=== PATIENT | female | born 1975 | race Caucasian/White ===

== ENCOUNTER → 2016-04-27 | Outpatient (CLI) | payer OTHER ==
[2015-12-10 16:50] VITALS: BP 126/72
[~2016-04-27] MED LIST: CITA20TA9 PO; HYDR12.58 PO; NAPR550T2 PO; OXYC-323 PO; PHEN15CA PO; PHEN37.568 PO
--- NOTE | 2016-04-27 14:49 | RAD ---
Bilateral hands, 6 views, 04/27/2016: History: Hand pain No fracture or destructive bony lesion is seen. There are minimal degenerative changes at scattered interphalangeal joints. There is a suggestion of small degenerative type cysts or bony erosions at the left fifth CMC joint level. The soft tissues are unremarkable. IMPRESSION: 1. Minimal arthritic change as described above. 2. No acute bony abnormality is detected.
== END | disposition home or self-care (01) ==
LOC: LAB 10:39
PROVIDERS: ATTEND Family Medicine
DX: M13.842 Other specified arthritis, left hand (principal); M24.842 Other specific joint derangements of left hand, not elsewhere classified
CPT/HCPCS: 36415; 73130; 84550; 86431

== ENCOUNTER 2016-05-25 10:31 | Emergency (ER) | payer OTHER ==
[~2016-05-25] VITALS: Ht 167.6 cm; Wt 80.7 kg
[2016-05-25 10:38] VITALS: BP 128/86
[2016-05-25] MEDS ORDERED: CLIN-44 PO (11:48)
--- NOTE | 2016-05-25 11:48 | PHYS DOC ---
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 She states that she does state that her feet quite a bit. She is complaining of a right ingrown toenail with a great toe. She states she has been soaking the toe in warm Epsom salt water without relief. The toe appears to be red and swollen and tender on the inner portion of the toenail. Patient denies any drainage or discharge coming from the site. Patient denies fever chills or nausea vomiting. Review of Systems Review of Systems Constitutional: Denies fever or chills [] Eyes: Denies change in visual acuity, redness, or eye pain [] HENT: Denies nasal congestion or sore throat [] Respiratory: Denies cough or shortness of breath [] Cardiovascular: No additional information not addressed in HPI [] GI: Denies abdominal pain, nausea, vomiting, bloody stools or diarrhea [] : Denies dysuria or hematuria [] Musculoskeletal: Denies back pain or joint pain [] Integument: Denies rash or skin lesions. C/o redness, tenderness and swelling to the right great toe Neurologic: Denies headache, focal weakness or sensory changes [] Allergies Allergies Allergies Coded Allergies Type Severity Reaction Last Updated Verified Cephalosporins Allergy Severe Anaphylaxis 12/09/15 Yes Sulfa (Sulfonamide Antibiotics) Allergy Severe Anaphylaxis 12/09/15 Yes Penicillins Allergy Intermediate Unknown 12/09/15 Yes amoxicillin Allergy Intermediate Rash 12/09/15 Yes bupropion Adverse Reaction Intermediate Anxiety 12/09/15 Yes Physical Exam Physical Exam Constitutional: Well developed, well nourished, no acute distress, non-toxic appearance. [] HENT: Normocephalic, atraumatic, bilateral external ears normal, oropharynx moist, no oral exudates, nose normal. [] Eyes: PERRLA, EOMI, conjunctiva normal, no discharge. [] Neck: Normal range of motion, no tenderness, supple, no stridor. [] Cardiovascular:Heart rate regular rhythm, no murmur [] Lungs & Thorax: Bilateral breath sounds clear to auscultation [] Skin: Warm, dry, no erythema, no rash. Right inner great toe with redness, warmth and tenderness, no drainage noted to the site. Back: No tenderness Extremities: No tenderness, no cyanosis, no clubbing, ROM intact, no edema. [] Neurologic: Alert and oriented X 3, normal motor function, normal sensory function, no focal deficits noted. [] Psychologic: Affect normal, judgement normal, mood normal. [] Current Patient Data Vital Signs Vital Signs Date Time Temp Pulse Resp B/P Pulse Ox O2 Delivery O2 Flow Rate FiO2 05/25/16 10:38 97.9 80 20 96 Room Air 97.9 EKG EKG [] Radiology/Procedures Radiology/Procedures [] Course & Med Decision Making Course & Med Decision Making Pertinent Labs and Imaging studies reviewed. (See chart for details) Activity as tolerated. Tylenol or ibuprofen for pain and discomfort. Patient will be placed on clindamycin due to allergy list. Patient will be instructed to follow-up with turkey egg gatherer. Also recommended patient to do warm salt salt soaks 3-4 times a day 20 minutes at a time. Patient was provided with signs and symptoms to return back to emergency department. Patient be discharged home in stable condition. Discharge instructions treatment regimens and follow-up recommendations. [] Dragon Disclaimer Dragon Disclaimer This electronic medical record was generated, in whole or in part, using a voice recognition dictation system. Departure Departure Impression: Primary Impression: Ingrowing nail with infection Disposition: 01 HOME, SELF-CARE Condition: STABLE Referrals: LILLIAN CAMERON MD (PCP) Patient Instructions: Ingrown Toenail, Paronychia, Adlb-fu-Hdtc Additional Instructions: Activity as tolerated. Tylenol or ibuprofen for pain and discomfort. Patient will be instructed to follow-up with turkey egg gatherer. Warm salt salt soaks 3-4 times a day 20 minutes at a time. Medication as prescribed Followup with turkey egg gatherer within the week Return to emergency department as needed for signs and symptoms that become worse. [] Scripts Clindamycin Hcl 150 Mg Capsule3 Cap PO TID 10 Days Prov:SHAY HERNADEZ NP 05/25/16 SHAY HERNADEZ NP May 25, 2016 11:48
== END 2016-05-25 12:08 | disposition home or self-care (01) ==
LOC: ER 10:31
DX: L60.0 Ingrowing nail (principal); I10 Essential (primary) hypertension; G43.909 Migraine, unspecified, not intractable, without status migrainosus; Z98.890 Other specified postprocedural states; Z88.8 Allergy status to other drugs, medicaments and biological substances; Z88.0 Allergy status to penicillin; Z88.1 Allergy status to other antibiotic agents; Z88.2 Allergy status to sulfonamides
CPT/HCPCS: 99283

== ENCOUNTER 2016-07-13 20:34 | Emergency (ER) | payer OTHER ==
[~2016-07-13] VITALS: Ht 167.6 cm; Wt 82.6 kg
[~2016-07-13 20:34] MED LIST changes: +CLIN-44 PO; -NAPR550T2 PO; +NAPR550T3 PO
[2016-07-13] MEDS ORDERED: PROCHLORPERAZINE 10 MG/2 ML VIAL. IV ONE (22:30)
[2016-07-13] MEDS ORDERED: KETOROLAC 15 MG/ML VIAL. IV ONE (22:30)
[2016-07-13] MEDS ORDERED: DIPHENHYDRAMINE 50 MG/ML VIAL. IVP ONE (22:30)
[2016-07-13] MEDS ORDERED: IV NORMAL SALINE 1000ML BAG 1,000 ML IV ONE (22:30)
--- NOTE | 2016-07-13 23:23 | ACF ---
Admission Forms Criteria HEADACHES Clinical Indications for Admission to Inpatient Care (Place 'X' for any and all applicable criteria): Admission is indicated for ANY ONE of the following(1)(2)(3)(4): [ ]I. Inpatient admission required rather than observational care (Also use Headaches: Observation Care as appropriate) because of ANY ONE of the following: [ ]a) Severe pain requiring acute inpatient management [ ]b) Altered mental status that is severe or persistent [ ]c) Vomiting or dehydration that is severe or persistent [ ]d) New-onset focal neurologic deficit that is severe or persistent [ ]e) Hypertension requiring inpatient treatment [ ]f) Severe (new) neurologic findings requiring inpatient care as indicated by ANY ONE of following(9)(10): [ ]1) Papilledema [ ]2) Cerebral edema [ ]3) Mass effect on CT scan [ ]4) Cerebral bleeding, ischemia, or vasospasm(16) [ ]5) Hydrocephalus(17) [ ]6) Uncontrolled seizures [ ]g) IV infusion of anticoagulation, platelet inhibitors vasoactive, or antiarrhythmic medication. [ ]h) Cerebral bleeding, hydrocephalus, or vasospasm monitoring (16) [ ]i) Increased intracranial pressure or cerebral edema monitoring (17) [ ]j) Other condition, treatment or monitoring requiring inpatient admission [ ]II. Unruptured but threatening aneurysm or vascular malformation [ ]III. Venous sinus thrombosis [ ]IV. Increased intracranial pressure [ ]V. Cerebral spinal fluid leak with decreased intracranial pressure [ ]. Medication-overuse headache that has failed all outpatient management options [ ]VII. Vasculitis (eg, giant cell (temporal) arteritis, central nervous system vasculitis) requiring IV corticosteroids, IV antithrombotic therapy, or inpatient monitoring (eg, visual symptoms or findings, other ischemic manifestations)[A](10)(11) Extended stay beyond goal length of stay may be needed for (27): [ ]a) Intractable migraine [ ]b) Subarachnoid or intracranial hemorrhage [ ]c) Malignant hypertension [ ]d) Detoxification from drug withdrawal in medication-overuse headache (29) The original [facility] RAZ Mobile content created by [facility] has been revised. The portions of the content which have been revised are identified through the use of italic text or in bold, and [employer] has neither reviewed nor approved the modified material.All other unmodified content is copyright [facility]. Please see references footnoted in the original [facility] edition 2016 VENTURA MILAN Jul 13, 2016 23:23
[2016-07-13 23:27] VITALS: BP 101/55
[2016-07-13] MEDS ORDERED: BUTA1CAP29 PO (23:32)
--- NOTE | 2016-07-13 23:32 | PHYS DOC ---
Past Medical History Past Medical History: Anxiety, Cancer, Hypertension, Migraines, Other Additional Past Medical Histor: EPIPLOIC APPENDAGITIS Past Surgical History: Hysterectomy, Tubal ligation, Other Additional Past Surgical Histo: RIGHT KNEE SX, SINUS SX, bilat mastectomy, port removal Alcohol Use: None Drug Use: None Adult General Chief Complaint Chief Complaint: HEADACHE HPI HPI Patient is a 40 year old female who presents with headache. Patient reports she arrived at work around 1830 tonight, and then started having throbbing pain in the left side of her head. This pain accompanied by nausea. She has tried Tylenol and ibuprofen with insufficient relief. Patient reports the same as prior migraines, which occur about once a month. She has never seen a neurologist for headaches. No other acute complaints. Review of Systems Review of Systems Constitutional: Denies fever or chills Eyes: Denies change in visual acuity or eye pain Respiratory: Denies cough or shortness of breath Cardiovascular: Denies chest pain GI: Nausea. Denies abdominal pain, vomiting, bloody stools or diarrhea : Denies dysuria or hematuria Musculoskeletal: Denies back pain or joint pain Neurologic: Migraine headache. Denies focal weakness or sensory changes Current Medications Current Medications Current Medications Medications (Trade) Dose Ordered Sig/Christofer Start Time Stop Time Status Last Admin Dose Admin Diphenhydramine HCl (Benadryl) 25 mg 1X ONCE 07/13/16 22:30 07/13/16 22:31 DC 07/13/16 22:28 25 MG Ketorolac Tromethamine (Toradol) 15 mg 1X ONCE 07/13/16 22:30 07/13/16 22:31 DC 07/13/16 22:28 15 MG Prochlorperazine Edisylate (Compazine) 10 mg 1X ONCE 07/13/16 22:30 07/13/16 22:31 DC 07/13/16 22:28 10 MG Sodium Chloride (Iv Sodium Chloride 0.9% 1000ml Bag) 1,000 ml @ 1,000 mls/hr 1X ONCE 07/13/16 22:30 07/13/16 23:29 DC 07/13/16 22:29 1,000 MLS/HR Allergies Allergies Allergies Coded Allergies Type Severity Reaction Last Updated Verified Cephalosporins Allergy Severe Anaphylaxis 12/09/15 Yes Sulfa (Sulfonamide Antibiotics) Allergy Severe Anaphylaxis 12/09/15 Yes Penicillins Allergy Intermediate PSYCHOTIC EPISODE 07/13/16 Yes amoxicillin Allergy Intermediate Rash 12/09/15 Yes sumatriptan Adverse Reaction Severe CHEST PAIN 07/13/16 Yes bupropion Adverse Reaction Intermediate Anxiety 12/09/15 Yes Physical Exam Physical Exam Constitutional: Well developed, well nourished, non-toxic appearance HENT: Normocephalic, atraumatic, bilateral external ears normal Eyes: PERRL, EOMI, conjunctiva normal, no discharge Neck: Normal range of motion, no stridor Cardiovascular: Heart rate normal, regular rhythm, no murmur Lungs & Thorax: Bilateral breath sounds clear to auscultation Abdomen: Bowel sounds normal, soft, non-distended, no TTP Skin: Warm, dry, no erythema, no rash Extremities: No obvious deformity, no edema Neurologic: Alert and oriented X 3, GCS 15, CN II-XII grossly intact, strength intact and symmetrical throughout, sensation to light touch intact throughout, no dystaxia noted Psychologic: Affect normal, judgement normal, mood normal Current Patient Data Vital Signs Vital Signs Date Time Temp Pulse Resp B/P Pulse Ox O2 Delivery O2 Flow Rate FiO2 07/13/16 23:27 57 101/55 95 Room Air 07/13/16 20:51 98.1 20 98.1 EKG EKG [] Radiology/Procedures Radiology/Procedures [] Course & Med Decision Making Course & Med Decision Making Pertinent Labs and Imaging studies reviewed. (See chart for details) Patient is 40-year-old female who presents with migraine headache. Long history of same. Will give migraine cocktail. Patient reexamined after meds. She reports near complete resolution of headache. Discharged home with prescription for Fioricet, instructions for follow-up with neurology, return precautions. Dragon Disclaimer Dragon Disclaimer This electronic medical record was generated, in whole or in part, using a voice recognition dictation system. Departure Departure Impression: Primary Impression: Migraine Disposition: 01 HOME, SELF-CARE Condition: IMPROVED Referrals: LILLIAN CAMERON MD (PCP) ECTOR MICHELLE MD Patient Instructions: Migraine Headache Additional Instructions: Thank you for allowing us to provide care today in the Emergency Department. Take the provided medication as directed. Use caution when taking this medication as it can make you drowsy. Schedule a follow up appointment with your primary care doctor and with a neurologist using the provided contact information. Return promptly to the Emergency Department if you develop any new or concerning symptoms. Scripts Butalb/Acetaminophen/Caffeine (Fioricet 50-300-40 Mg Capsule)1 Each Capsule1 Each PO PRN Q4HRS PRN HEADACHE #15 CAP Prov:ALIZA ORANTES MD 07/13/16 ALIZA ORANTES MD Jul 13, 2016 23:32
== END 2016-07-13 23:48 | disposition home or self-care (01) ==
LOC: ER 20:34
DX: G43.909 Migraine, unspecified, not intractable, without status migrainosus (principal); F41.9 Anxiety disorder, unspecified; I10 Essential (primary) hypertension; Z88.0 Allergy status to penicillin; Z88.1 Allergy status to other antibiotic agents; Z88.2 Allergy status to sulfonamides; Z88.8 Allergy status to other drugs, medicaments and biological substances
CPT/HCPCS: 96361; 96374; 96375; 99284; J0780; J1200; J1885; J7030

== ENCOUNTER → 2016-08-04 | Outpatient (CLI) | payer OTHER ==
[2016-07-13 23:27] VITALS: BP 101/55
[~2016-08-04] MED LIST changes: +BUTA1CAP29 PO
[2016-08-04 10:18] LABS: ALBUMIN 3.7 g/dL (3.4-5.0); ALBUMIN/GLOBULIN RATIO 1.1 (1.0-1.7); CALCIUM 9.3 mg/dL (8.5-10.1); CREATININE 0.7 mg/dL (0.6-1.0); GFR 93.6; POTASSIUM 4.5 mmol/L (3.5-5.1); TOTAL BILIRUBIN 0.4 mg/dL (0.2-1.0); TOTAL PROTEIN 7.2 g/dL (6.4-8.2)
== END | disposition home or self-care (01) ==
LOC: LAB 09:34
PROVIDERS: ATTEND Family Medicine
DX: E11.9 Type 2 diabetes mellitus without complications (principal); I11.0 Hypertensive heart disease with heart failure
CPT/HCPCS: 36415; 80053; 82043; 83036

== ENCOUNTER → 2016-08-10 | Outpatient (CLI) | payer OTHER ==
[2016-07-13 23:27] VITALS: BP 101/55
[2016-08-10 12:59] LABS: BASO % 0 % (0-3); EOS % 3 % (0-3); HEMATOCRIT 39.3 % (36.0-47.0); HEMOGLOBIN 13.5 g/dL (12.0-15.5); LYMPH # 2.7 x10^3/uL (1.0-4.8); LYMPH % 30 % (24-48); MEAN CORPUSCULAR HEMOGLOBIN 31 pg (25-35); MEAN CORPUSCULAR HGB CONC 34 g/dL (31-37); MEAN CORPUSCULAR VOLUME 91 fL (79-100); MONO % 7 % (0-9); NEUT % 60 % (31-73); PLATELET COUNT 335 x10^3/uL (140-400); RED BLOOD COUNT 4.31 x10^6/uL (3.50-5.40); RED CELL DISTRIBUTION WIDTH 13.4 % (11.5-14.5)
[2016-08-10 13:23] LABS: ALBUMIN 3.5 g/dL (3.4-5.0); CREATININE 0.6 mg/dL (0.6-1.0); GFR 111.3; POTASSIUM 4.1 mmol/L (3.5-5.1); TOTAL BILIRUBIN 0.3 mg/dL (0.2-1.0); TOTAL PROTEIN 6.9 g/dL (6.4-8.2)
== END | disposition home or self-care (01) ==
LOC: LAB 12:20
PROVIDERS: ATTEND Psychiatry & Neurology Neurology
DX: G43.009 Migraine without aura, not intractable, without status migrainosus (principal)
CPT/HCPCS: 36415; 80053; 85027; 85651

== ENCOUNTER → 2017-02-03 | Outpatient (CLI) | payer OTHER ==
[~2017-02-03] MED LIST changes: -CLIN-44 PO; +CLIN150C14 PO; +NAPR-677 PO; -NAPR550T3 PO; -PHEN15CA PO; +PHEN15CA2 PO; -PHEN37.568 PO; +PHEN37.598 PO
[2017-02-03 13:01] LABS: ALBUMIN 3.8 g/dL (3.4-5.0); CALCIUM 9.5 mg/dL (8.5-10.1); CREATININE 0.7 mg/dL (0.6-1.0); GFR 93.2; POTASSIUM 3.9 mmol/L (3.5-5.1); TOTAL BILIRUBIN 0.3 mg/dL (0.2-1.0); TOTAL PROTEIN 7.5 g/dL (6.4-8.2)
[2017-02-03 13:04] LABS: BASO # 0.1 x10^3/uL (0.0-0.2); BASO % 1 % (0-3); EOS % 1 % (0-3); HEMATOCRIT 41.5 % (36.0-47.0); HEMOGLOBIN 13.9 g/dL (12.0-15.5); LYMPH # 2.5 x10^3/uL (1.0-4.8); LYMPH % 22 % (24-48); MEAN CORPUSCULAR HEMOGLOBIN 31 pg (25-35); MEAN CORPUSCULAR HGB CONC 33 g/dL (31-37); MEAN CORPUSCULAR VOLUME 92 fL (79-100); MONO % 7 % (0-9); NEUT % 70 % (31-73); PLATELET COUNT 378 x10^3/uL (140-400); RED BLOOD COUNT 4.53 x10^6/uL (3.50-5.40); RED CELL DISTRIBUTION WIDTH 13.4 % (11.5-14.5); WHITE BLOOD COUNT 11.2 x10^3/uL (4.0-11.0)
== END | disposition home or self-care (01) ==
LOC: LAB 12:16
PROVIDERS: ATTEND Family Medicine
DX: R10.11 Right upper quadrant pain (principal)
CPT/HCPCS: 36415; 80053; 83690; 85025

== ENCOUNTER → 2017-02-16 | Outpatient (CLI) | payer OTHER ==
[~2017-02-16] MED LIST changes: +SINCALIDE 1.68 MCG in IV NORMAL SALINE 50ML 30 ML IV ONE
--- NOTE | 2017-02-16 12:58 | RAD ---
EXAM: Nuclear hepatobiliary scan with ejection fraction. HISTORY: Abdominal pain/nausea. TECHNIQUE: Serial static images are obtained of the liver and biliary system in a frontal projection following IV administration of 5.5 mCi of technetium-99m Choletec. After filling of the gallbladder, 1.68 mcg of sincalide were infused over 30 minutes and dynamic imaging continued over this period. The gallbladder ejection fraction was calculated. FINDINGS: There is prompt hepatic clearance of tracer from the blood pool. There is homogeneous distribution throughout the liver. There is normal filling of the gallbladder and normal emptying into the biliary system and small bowel. The gallbladder ejection fraction is 63.6% (normal >35%). IMPRESSION: 1. Normal gallbladder ejection fraction.
== END | disposition home or self-care (01) ==
LOC: NM 10:18
PROVIDERS: ATTEND Family Medicine
DX: R11.0 Nausea (principal); R93.8 Abnormal findings on diagnostic imaging of other specified body structures
CPT/HCPCS: 78226; 96374; 96375; A9537; J2805

== ENCOUNTER 2017-02-22 01:28 | Emergency (ER) | payer OTHER ==
[~2017-02-22] VITALS: Ht 167.6 cm; Wt 83.9 kg
[~2017-02-22 01:28] MED LIST changes: -SINCALIDE 1.68 MCG in IV NORMAL SALINE 50ML 30 ML IV ONE
[2017-02-22 01:55] VITALS: BP 142/78
[2017-02-22 02:08] LABS: BILIRUBIN,URINE NEGATIVE (NEG); GLUCOSE,URINE NEGATIVE (NEG); NITRITE,URINE NEGATIVE (NEG); PH,URINE 6.5; PROTEIN,URINE NEGATIVE (NEG-TRACE); UROBILINOGEN,URINE 0.2 mg/dL (0.2 mg/dL)
[2017-02-22 02:12] LABS: BACTERIA,URINE 0 /HPF (0-FEW); SQUAMOUS EPITHELIAL CELL,UR FEW /LPF
[2017-02-22 02:40] LABS: BASO # 0.1 x10^3/uL (0.0-0.2); BASO % 1 % (0-3); EOS % 2 % (0-3); HEMATOCRIT 39.7 % (36.0-47.0); HEMOGLOBIN 13.4 g/dL (12.0-15.5); LYMPH # 4.1 x10^3/uL (1.0-4.8); LYMPH % 38 % (24-48); MEAN CORPUSCULAR HEMOGLOBIN 31 pg (25-35); MEAN CORPUSCULAR HGB CONC 34 g/dL (31-37); MEAN CORPUSCULAR VOLUME 90 fL (79-100); MONO % 6 % (0-9); NEUT % 54 % (31-73); PLATELET COUNT 340 x10^3/uL (140-400); RED BLOOD COUNT 4.39 x10^6/uL (3.50-5.40); RED CELL DISTRIBUTION WIDTH 13.2 % (11.5-14.5); WHITE BLOOD COUNT 10.9 x10^3/uL (4.0-11.0)
[2017-02-22 02:55] LABS: CALCIUM 9.3 mg/dL (8.5-10.1); CREATININE 0.7 mg/dL (0.6-1.0); GFR 93.2; POTASSIUM 3.4 mmol/L (3.5-5.1)
[2017-02-22 02:59] LABS: ALBUMIN 4.1 g/dL (3.4-5.0); ALBUMIN/GLOBULIN RATIO 1.3 (1.0-1.7); TOTAL BILIRUBIN 0.3 mg/dL (0.2-1.0); TOTAL PROTEIN 7.3 g/dL (6.4-8.2)
[2017-02-22] MEDS ORDERED: HYDROmorphone 2 MG/ML VIAL IV/SQ PRN (03:00)
[2017-02-22] MEDS ORDERED: ONDANSETRON PF 4 MG/2 ML VIAL. IV ONE (03:30)
[2017-02-22] MEDS ORDERED: IV NORMAL SALINE 1000ML BAG 1,000 ML IV SCH (03:30)
--- NOTE | 2017-02-22 03:36 | PHYS DOC ---
Past Medical History Past Medical History: Anxiety, Cancer, Hypertension, Migraines, Other Additional Past Medical Histor: EPIPLOIC APPENDAGITIS, BREAST CANCER W CHEMO Past Surgical History: Hysterectomy, Tubal ligation, Other Additional Past Surgical Histo: RIGHT KNEE SX, SINUS SX, bilat mastectomy, port removal Alcohol Use: None Drug Use: None Adult General Chief Complaint Chief Complaint: ABDOMINAL PAIN HPI HPI 41 yo F with a hx of chronic epigastric/ruq abd pain for more than a month. She has had an US, CT and Hida scan which were reportedly nl. her pain is sharp, nonradiating without alleviating factors. 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 ROS neg for f/c/n/v. neg for cp/soa. all other ros is neg. ed course: 41 yo F presenting with chronic RUQ abd pain associated with lightheadedness. vital unremarkable. labs unremarkable. abd exam and repeat abd exam reassuring. In the emergency department patient appears stable. IV fluids administered which improved her symptoms. Abdomen soft nontender without rebound tenderness or guarding. Pt d/chris with f/u with Pcp. return precautions given. pt comfortable with plan. Review of Systems Review of Systems see above Current Medications Current Medications Current Medications Medications (Trade) Dose Ordered Sig/Christofer Start Time Stop Time Status Last Admin Dose Admin Hydromorphone HCl (Dilaudid) 0.5 mg PRN Q15MIN PRN 02/22/17 03:00 02/22/17 04:55 DC Ondansetron HCl (Zofran) 4 mg 1X ONCE 02/22/17 03:30 02/22/17 03:31 DC 02/22/17 04:14 4 MG Sodium Chloride 1,000 ml @ 1,000 mls/hr Q1H 02/22/17 03:30 02/22/17 04:29 DC 02/22/17 04:14 1,000 MLS/HR Allergies Allergies Allergies Coded Allergies Type Severity Reaction Last Updated Verified Cephalosporins Allergy Severe Anaphylaxis 12/09/15 Yes Sulfa (Sulfonamide Antibiotics) Allergy Severe Anaphylaxis 12/09/15 Yes Penicillins Allergy Intermediate PSYCHOTIC EPISODE 07/13/16 Yes amoxicillin Allergy Intermediate Rash 12/09/15 Yes sumatriptan Adverse Reaction Severe CHEST PAIN 07/13/16 Yes bupropion Adverse Reaction Intermediate Anxiety 12/09/15 Yes Physical Exam Physical Exam Constitutional: Well developed, well nourished, no acute distress, non-toxic appearance. [] HENT: Normocephalic, atraumatic, bilateral external ears normal, oropharynx moist, no oral exudates, nose normal. [] Eyes: PERRLA, EOMI, conjunctiva normal, no discharge. [] Neck: Normal range of motion, no tenderness, supple, no stridor. [] Cardiovascular:Heart rate regular rhythm, no murmur [] Lungs & Thorax: Bilateral breath sounds clear to auscultation [] Abdomen: Bowel sounds normal, soft, no tenderness, no masses, no pulsatile masses. [] Skin: Warm, dry, no erythema, no rash. [] Back: No tenderness, no CVA tenderness. [] Extremities: No tenderness, no cyanosis, no clubbing, ROM intact, no edema. [] Neurologic: Alert and oriented X 3, normal motor function, normal sensory function, no focal deficits noted. [] Psychologic: Affect normal, judgement normal, mood normal. [] Current Patient Data Vital Signs Vital Signs Date Time Temp Pulse Resp B/P (MAP) Pulse Ox O2 Delivery O2 Flow Rate FiO2 02/22/17 01:55 98.3 76 20 142/78 (99) 98 Room Air 98.3 Lab Values Laboratory Tests Test 02/22/17 01:50 02/22/17 02:35 Urine Collection Type Unknown Urine Color Yellow Urine Clarity Clear Urine pH 6.5 Urine Specific [place] 1.015 Urine Protein Negative mg/dL (NEG-TRACE) Urine Glucose (UA) Negative mg/dL (NEG) Urine Ketones (Stick) Negative mg/dL (NEG) Urine Blood Small (NEG) Urine Nitrite Negative (NEG) Urine Bilirubin Negative (NEG) Urine Urobilinogen Dipstick 0.2 mg/dL (0.2 mg/dL) Urine Leukocyte Esterase Negative (NEG) Urine RBC 6-10 /HPF (0-2) Urine WBC 1-4 /HPF (0-4) Urine Squamous Epithelial Cells Few /LPF Urine Bacteria 0 /HPF (0-FEW) Urine Mucus Mod /LPF White Blood Count 10.9 x10^3/uL (4.0-11.0) Red Blood Count 4.39 x10^6/uL (3.50-5.40) Hemoglobin 13.4 g/dL (12.0-15.5) Hematocrit 39.7 % (36.0-47.0) Mean Corpuscular Volume 90 fL (79-100) Mean Corpuscular Hemoglobin 31 pg (25-35) Mean Corpuscular Hemoglobin Concent 34 g/dL (31-37) Red Cell Distribution Width 13.2 % (11.5-14.5) Platelet Count 340 x10^3/uL (140-400) Neutrophils (%) (Auto) 54 % (31-73) Lymphocytes (%) (Auto) 38 % (24-48) Monocytes (%) (Auto) 6 % (0-9) Eosinophils (%) (Auto) 2 % (0-3) Basophils (%) (Auto) 1 % (0-3) Neutrophils # (Auto) 5.9 x10^3uL (1.8-7.7) Lymphocytes # (Auto) 4.1 x10^3/uL (1.0-4.8) Monocytes # (Auto) 0.7 x10^3/uL (0.0-1.1) Eosinophils # (Auto) 0.2 x10^3/uL (0.0-0.7) Basophils # (Auto) 0.1 x10^3/uL (0.0-0.2) Sodium Level 139 mmol/L (136-145) Potassium Level 3.4 mmol/L (3.5-5.1) L Chloride Level 103 mmol/L (98-107) Carbon Dioxide Level 27 mmol/L (21-32) Anion Gap 9 (6-14) Blood Urea Nitrogen 11 mg/dL (7-20) Creatinine 0.7 mg/dL (0.6-1.0) Estimated GFR (Cockcroft-Gault) 93.2 BUN/Creatinine Ratio 16 (6-20) Glucose Level 114 mg/dL (70-99) H Calcium Level 9.3 mg/dL (8.5-10.1) Total Bilirubin 0.3 mg/dL (0.2-1.0) Aspartate Amino Transferase (AST) 28 U/L (15-37) Alanine Aminotransferase (ALT) 44 U/L (14-59) Alkaline Phosphatase 149 U/L (46-116) H Total Protein 7.3 g/dL (6.4-8.2) Albumin 4.1 g/dL (3.4-5.0) Albumin/Globulin Ratio 1.3 (1.0-1.7) Lipase 139 U/L (73-393) Laboratory Tests 02/22/17 02:35 Laboratory Tests 02/22/17 02:35 EKG EKG [] Radiology/Procedures Radiology/Procedures [] Course & Med Decision Making Course & Med Decision Making Pertinent Labs and Imaging studies reviewed. (See chart for details) [] Dragon Disclaimer Dragon Disclaimer This electronic medical record was generated, in whole or in part, using a voice recognition dictation system. Departure Departure Impression: Primary Impression: Epigastric abdominal pain Additional Impression: Lightheaded Disposition: HOME, SELF-CARE Condition: STABLE Referrals: LILLIAN CAMERON MD (PCP) Patient Instructions: Abdominal Pain (Nonspecific) Additional Instructions: Thank you for allowing us to participate in your care today. Followup with your primary care physician in 3 days if your symptoms do not improve. Call your Primary Doctor tomorrow and inform them of your visit today. If you do not have a primary care provider you can ask for a list of our primary care providers. Return to the emergency department you have any new or concerning findings. This should be evaluated by the primary care physician and any necessary consulting services for continued management within a few days after discharge. Return to emergency room if you have any new or concerning symptoms including but not limited to fever, chills, nausea, vomiting, intractable pain, any new rashes, chest pain, shortness of air, uncontrolled bleeding, difficulty breathing, and/or vision loss. Problem Qualifiers PATRICK NEUMANN MD Feb 22, 2017 03:36
--- NOTE | 2017-02-22 06:48 | EKG ---
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
== END 2017-02-22 04:55 | disposition home or self-care (01) ==
LOC: ER 01:28
DX: G89.29 Other chronic pain (principal); R10.13 Epigastric pain; R10.11 Right upper quadrant pain; R42 Dizziness and giddiness; I10 Essential (primary) hypertension; F41.9 Anxiety disorder, unspecified; G43.909 Migraine, unspecified, not intractable, without status migrainosus; Z88.2 Allergy status to sulfonamides; Z88.1 Allergy status to other antibiotic agents; Z88.0 Allergy status to penicillin; Z88.8 Allergy status to other drugs, medicaments and biological substances
CPT/HCPCS: 36415; 80053; 81001; 83690; 85025; 93005; 96361; 96374; 99285; J2405; J7030

== ENCOUNTER 2017-03-07 06:25 | Observation (INO) | payer OTHER ==
[~2017-03-07] VITALS: Ht 165.1 cm; Wt 84.4 kg
[2017-03-07] VITALS (11 sets, daily range): BP systolic 92–132; BP diastolic 52–73
[~2017-03-07 06:25] MED LIST changes: +ACET500T33 PO; +ANAS1TAB3 PO
[2017-03-07] MEDS ORDERED: ONDANSETRON PF 4 MG/2 ML VIAL. IV PRN ×2 (07:00→12:15)
[2017-03-07] MEDS ORDERED: PROCHLORPERAZINE 10 MG/2 ML VIAL. IV PRN (07:00)
[2017-03-07] MEDS ORDERED: LIDOCAINE 1% PF 2 ML VIAL. ID PRN (07:00)
[2017-03-07] MEDS ORDERED: IV RINGERS,LACTATED 1000ML 1,000 ML IV SCH (07:00)
[2017-03-07] MEDS ORDERED: fentaNYL PF VIAL 100 MCG/2 ML VIAL IV PRN (07:00)
[2017-03-07] MEDS ORDERED: HYDROmorphone 2 MG/ML VIAL IV PRN (07:00)
[2017-03-07] MEDS ORDERED: IOHEXOL 300 MG/ML 50 ML VIAL. ONE (07:33)
[2017-03-07] MEDS ORDERED: SURGICEL HEMOSTAT 4X8 EACH. ONE (07:33)
[2017-03-07] MEDS ORDERED: BUPIVAC MPF-EPI 0.5%-1:200000 30 ML VIAL. ONE (07:33)
[2017-03-07] MEDS ORDERED: SEVOFLURANE 61 TO 120 MINUTES. IH ONE (08:09)
[2017-03-07] MEDS ORDERED: ROCURONIUM 50 MG/5 ML VIAL. ONE (08:09)
[2017-03-07] MEDS ORDERED: fentaNYL PF VIAL 100 MCG/2 ML VIAL ONE ×3 (08:09→10:36)
[2017-03-07] MEDS ORDERED: MIDAZOLAM HCL/PF 2 MG/2 ML VIAL. ONE (08:09)
[2017-03-07] MEDS ORDERED: PROPOFOL 20 ML IV ONE (08:10)
[2017-03-07] MEDS ORDERED: ONDANSETRON PF 4 MG/2 ML VIAL. ONE (08:10)
[2017-03-07] MEDS ORDERED: LIDOCAINE 2% PF Vial for OR 5 ML VIAL. ONE (08:10)
[2017-03-07] MEDS ORDERED: DEXAMETHASONE SOD PHOS 20 MG/5 ML VIAL. ONE ×2 (08:10)
[2017-03-07] MEDS ORDERED: diphenhydrAMINE 50 MG/ML VIAL ONE (08:32)
[2017-03-07] MEDS ORDERED: FAMOTIDINE 20 MG/2 ML VIAL ONE (08:32)
[2017-03-07] MEDS ORDERED: GLYCOPYRROLATE 1 MG/5 ML VIAL. ONE (09:01)
[2017-03-07] MEDS ORDERED: NEOSTIGMINE 10 MG/10 ML VIAL. ONE (09:01)
[2017-03-07] MEDS ORDERED: KETOROLAC 30 MG/ML INJ FOR OR. INJ ONE (09:02)
--- NOTE | 2017-03-07 09:16 | RAD ---
Intraoperative cholangiogram, 03/07/2017: History: Cholecystectomy 2 spot films from surgery are presented for review. Contrast has been injected into the cystic duct remnant. 10 seconds of fluoroscopy time was utilized. There is good flow of contrast into the duodenum at the ampulla. The common duct is of normal caliber. No filling defect is seen in the common duct to suggest a retained calculus. The visualized intrahepatic ducts are unremarkable. No contrast extravasation is seen. IMPRESSION: No significant abnormality is detected.
--- NOTE | 2017-03-07 09:23 | PDOC4 ---
Operative Note Operative Note Operative Note: Preoperative Diagnosis: Biliary dyskinesia Postoperative Diagnosis: Same Procedure: Laparoscopic cholecystectomy with intraoperative cholangiogram Surgeons: Alexander Anesthesia: Gen. Estimated Blood Loss: 10 mL Specimen: Gallbladder to pathology Drains: None Complications: None Indications: The patient is a 41 year old female who is been experiencing recurrent upper abdominal pain consistent with biliary colic. She underwent a PIPIDA scan which showed a normal ejection fraction but severe and prominent reproduction of symptoms with injection of Kinevac consistent with biliary dyskinesia. Surgical treatment was offered by means of a laparoscopic cholecystectomy. The risks of surgery were discussed which include bleeding, infection, bile duct injury, bile leak, pain, the potential for additional surgeries or procedures. The patient understands and would like to proceed. Description: The patient was taken to the operating room and laid supine on the operating table. General anesthesia was performed. The abdomen was prepped with ChloraPrep and draped in a standard surgical fashion. A small infraumbilical incision was made with a scalpel. The Veress needle was then inserted and a pneumoperitoneum was then created. A 5 mm trocar was then inserted and the laparoscope was introduced. In the upper midabdomen a 5 mm trocar was inserted and in the right upper quadrant two 2.3 mm mini lap graspers were inserted. The gallbladder was retracted cephalad. The cystic duct was dissected free from surrounding tissues. One clip was placed on the duct near the gallbladder junction. An opening was made in the duct and a cholangiocatheter placed within and secured with a clip. Using contrast dye and fluoroscopy an intraoperative cholangiogram was performed that appeared unremarkable. The clip and catheter were then withdrawn. Three clips were placed on the cystic duct and it was divided. The cystic artery was then identified, dissected free, doubly clipped and divided as well. The gallbladder was then mobilized away from the liver with cautery. The umbilical 5 millimeter trocar was exchanged for an 11 millimeter trocar. The gallbladder was then placed in an endoscopic bag and extracted at the umbilical trocar site. The fascia there was closed with an 0 Vicryl suture. All blood and irrigation fluid was suctioned and hemostasis was good. The remaining ports were removed and the pneumoperitoneum was relieved. The skin incisions were injected with half percent Marcaine with epinephrine, and all were closed using 4-0 Monocryl suture. Steri-Strips and dressings were then applied. The patient tolerated the procedure well and was sent to the recovery room in stable condition. At the end of the case all counts were correct. WALI BANKS MD Mar 07, 2017 09:23
--- NOTE | 2017-03-07 09:26 | DISCH ---
DISCHARGE INSTRUCTIONS Condition on Discharge Condition on Discharge: Stable Activity After Discharge Activity Instructions for Disc: Other, see below (no lifting over 20 lbs X 2 weeks) Driving Instructions after Dis: Other, see below (no driving while taking pain meds) Diet after Discharge Diet after Discharge: Regular Wound Incision Care Wound/Incision Care: Other, see below (may remove bandaids tomorrow and shower) Follow-Up Follow up with: Dr Banks in 2 weeks, call for appt [phone] WALI BANKS MD Mar 07, 2017 09:26
[2017-03-07] MEDS ORDERED: OXYC-323 PO (09:33)
[2017-03-07] MEDS: fentaNYL PF VIAL 100 MCG/2 ML VIAL IV PRN ×4 (09:49→10:54)
[2017-03-07] MEDS ORDERED: oxyCODONE/APAP 5/325 1 TAB TABLET PO PRN ×2 (10:15→12:15)
[2017-03-07] MEDS: MORPHINE SULFATE 2 MG/ML DISP.SYRIN. IV PRN ×2 (10:30→10:46)
[2017-03-07] MEDS: oxyCODONE/APAP 5/325 1 TAB TABLET PO PRN ×3 (10:31→19:52)
[2017-03-07] MEDS ORDERED: HYDROmorphone 2 MG/ML VIAL ONE (10:59)
[2017-03-07] MEDS ORDERED: HYDROmorphone 2 MG/ML VIAL IVP PRN (12:15)
[2017-03-07] MEDS: KETOROLAC 30 MG/ML INJ. IV PRN ×2 (16:44→19:57)
[2017-03-08 01:45] VITALS: BP 93/52
[2017-03-08] MEDS: oxyCODONE/APAP 5/325 1 TAB TABLET PO PRN ×3 (02:01→12:05)
[2017-03-08 06:00] VITALS: BP 137/62
[2017-03-08] MEDS ORDERED: PNEUMOC CONJ VACC 23-VALENT 0.5 ML VIAL. VAX IM ONE (09:00)
[2017-03-08 12:00] VITALS: BP 122/66
[2017-03-08] MEDS ORDERED: IBUPROFEN 600 MG TABLET. PO PRN (13:15)
[2017-03-08] MEDS ORDERED: FAMOTIDINE 20 MG TABLET. PO ONE (13:15)
--- NOTE | 2017-03-08 13:15 | PDOC ---
JEWELS MANRIQUE APRN 03/08/17 1315: SURGICAL PROGRESS NOTE Subjective tolerating diet ambulating pain managed Vital Signs Vital Signs Date Time Temp Pulse Resp B/P (MAP) Pulse Ox O2 Delivery O2 Flow Rate FiO2 03/08/17 08:20 Room Air 2.0 03/08/17 06:00 97.8 61 16 137/62 (87) 98 97.8 I&O Intake and Output 03/08/17 07:00 Intake Total 10 ml Balance 10 ml Intake Oral 10 ml # Voids 2 General: Alert, Oriented X3, Cooperative Abdomen: Soft, Other (ND, incisions c/d/i, no erythema ) Assessment/Plan s/p lap jasiel DC home FU 2 weeks Problems: WALI BANKS MD 03/08/17 1523: SURGICAL PROGRESS NOTE Assessment/Plan Agree with above Problems: JEWELS MANRIQUE APRN Mar 08, 2017 13:15 WALI BANKS MD Mar 08, 2017 15:23
--- NOTE | 2017-03-08 14:38 | PATHOLOGY ---
PATHOLOGY REPORT * * * * * * * * FINAL DIAGNOSIS: Gallbladder, laparoscopic cholecystectomy: - Chronic cholecystitis. COMMENT: There are no calculi identified within the gallbladder lumen or specimen container. Sections of the gallbladder show mild chronic inflammation. There is no evidence of malignancy. (JPM:rlm; 03/08/2017) REPORT ELECTRONICALLY SIGNED BY: Dominguez Shah M.D. DATE/TIME: 03/08/2017 14:37 * * * * * * * * GROSS PATHOLOGY: Received in formalin labeled "Niki Tavarez, gallbladder with contents," is a 6.5 x 3.4 x 2.4 cm, intact gallbladder with light blue, vascular serosal surfaces. Opening the gallbladder reveals dark foy, velvety mucosa and an average wall thickness of 0.2 cm. Calculi are not present and no masses are noted grossly. Product Architect sections from the body and fundus are submitted along with the proximal margin in cassette A1. (TSD; 03/07/2017) INITIAL CPT CODE(S): A; 31976 Professional services performed [place] [facility] [place] [address] Technical services performed by [facility] at [address] [place] [address]. SPECIMEN(S) RECEIVED: A.Gallbladder and contents CLINICAL HISTORY: Biliary colic PATIENT: NIKI TAVAREZ /AGE: 5 1975 (Age: 41) PATIENT #: [id number] ALT CASE #: SPECIMEN COLLECTION DATE: 03/07/2017 SPECIMEN RECEIVED DATE: 03/07/2017 [facility] - [address] [place] [address] - PHONE: [phone] * * * END OF REPORT * * *
--- NOTE | 2017-03-11 13:22 | PDOC3 ---
Discharge Summary Date of Admission: Mar 07, 2017 Date of Discharge: Mar 08, 2017 Follow-Up: Other (2 weeks) Admitting Diagnosis comment: Biliary dyskinesia Problems: FINAL DIAGNOSIS Biliary dyskinesia Brief Hospital Course Ms. Tavarez is a 41 old female who presented with Biliary dyskinesia. She underwent a laparoscopic cholecystectomy. Postoperatively tolerating diet, ambulating, and pain managed. Ready for discharge home. CONDITION AT DISCHARGE: Stable Discharge Medications Current Medications Ondansetron HCl (Zofran) 4 mg PRN Q6HRS PRN IV NAUSEA/VOMITING; Start at 07:00; Stop 03/07/17 at 17:08; Status DC Fentanyl Citrate (Fentanyl 2ml Vial) 25 mcg PRN Q5MIN PRN IV MILD PAIN; Start 03/07/17 at 07:00; Stop 03/07/17 at 17:08; Status DC Fentanyl Citrate (Fentanyl 2ml Vial) 50 mcg PRN Q5MIN PRN IV MODERATE PAIN Last administered on 03/07/17 10:54; Start 03/07/17 at 07:00; Stop 03/07/17 at 17:08; Status DC Morphine Sulfate 1 mg PRN Q10MIN PRN IV SEVERE PAIN Last administered on 10:46; Start 03/07/17 at 07:00; Stop 03/07/17 at 17:08; Status DC Ringer's Solution 1,000 ml @ 0 mls/hr Q0M IV Last administered on 03/07/17 07:09; Start 03/07/17 at 07:00; Stop 03/07/17 at 17:08; Status DC Lidocaine HCl (Xylocaine-Mpf 1% Vial) 2 ml PRN 1X PRN ID PRIOR TO IV START; Start 03/07/17 at 07:00; Stop 03/07/17 at 17:08; Status DC Hydromorphone HCl (Dilaudid) 0.5 mg PRN Q10MIN PRN IV SEV PAIN, Second choice Last administered on 03/07/17 11:04; Start 03/07/17 at 07:00; Stop 03/07/17 at 17:08; Status DC Prochlorperazine Edisylate (Compazine) 5 mg PACU PRN PRN IV NAUSEA, MRX1; Start 03/07/17 at 07:00; Stop 03/07/17 at 17:08; Status DC Levofloxacin/ Dextrose 150 ml @ 100 mls/hr 1X PREOP PRN IV PRIOR TO SURGERY Last administered on 03/07/17 08:30; Start 03/07/17 at 08:00; Stop 03/07/17 at 17:08; Status DC Iohexol (Omnipaque 300 Mg/ml) 50 ml STK-MED ONCE .ROUTE Last administered on 08:58; Start 03/07/17 at 07:33; Stop 03/07/17 at 17:08; Status DC Bupivacaine HCl/ Epinephrine Bitart (Sensorcain-Mpf Epi 0.5%-1:[id number]) 30 ml STK -MED ONCE .ROUTE Last administered on 03/07/17 08:40; Start 03/07/17 at 07: 33; Stop 03/07/17 at 17:08; Status DC Cellulose 1 each STK-MED ONCE .ROUTE ; Start 03/07/17 at 07:33; Stop 03/07/17 at 17:08; Status DC Midazolam HCl (Versed) 2 mg STK-MED ONCE .ROUTE ; Start 03/07/17 at 08:09; Stop 03/07/17 at 17:08; Status DC Fentanyl Citrate (Fentanyl 2ml Vial) 100 mcg STK-MED ONCE .ROUTE ; Start at 08:09; Stop 03/07/17 at 17:08; Status DC Rocuronium [place] (Zemuron) 50 mg STK-MED ONCE .ROUTE ; Start 03/07/17 at 08: 09; Stop 03/07/17 at 17:08; Status DC Sevoflurane (Ultane) 60 ml STK-MED ONCE IH ; Start 03/07/17 at 08:09; Stop 02/11 at 17:08; Status DC Dexamethasone Sodium Phosphate (Decadron) 20 mg STK-MED ONCE .ROUTE ; Start 02/11 at 08:10; Stop 03/07/17 at 17:08; Status DC Propofol 20 ml @ As Directed STK-MED ONCE IV ; Start 03/07/17 at 08:10; Stop 03/07/17 at 17:08; Status DC Ondansetron HCl (Zofran) 4 mg STK-MED ONCE .ROUTE ; Start 03/07/17 at 08:10; Stop 03/07/17 at 17:08; Status DC Lidocaine HCl (Lidocaine Pf 2% Vial) 5 ml STK-MED ONCE .ROUTE ; Start 03/07/17 at 08:10; Stop 03/07/17 at 17:08; Status DC Dexamethasone Sodium Phosphate (Decadron) 20 mg STK-MED ONCE .ROUTE ; Start 02/11 at 08:10; Stop 03/07/17 at 17:08; Status DC Diphenhydramine HCl (Benadryl) 50 mg STK-MED ONCE .ROUTE ; Start 03/07/17 at 08 :32; Stop 03/07/17 at 17:08; Status DC Famotidine (Pepcid Vial) 20 mg STK-MED ONCE .ROUTE ; Start 03/07/17 at 08:32; Stop 03/07/17 at 17:08; Status DC Neostigmine Methylsulfate (Bloxiverz) 10 mg STK-MED ONCE .ROUTE ; Start at 09:01; Stop 03/07/17 at 17:08; Status DC Glycopyrrolate (Robinul) 1 mg STK-MED ONCE .ROUTE ; Start 03/07/17 at 09:01; Stop 03/07/17 at 17:08; Status DC Ketorolac Tromethamine (Toradol For Or Only) 30 mg STK-MED ONCE INJ ; Start 02/11 at 09:02; Stop 03/07/17 at 17:08; Status DC Fentanyl Citrate (Fentanyl 2ml Vial) 100 mcg STK-MED ONCE .ROUTE ; Start at 09:46; Stop 03/07/17 at 17:08; Status DC Oxycodone/ Acetaminophen (Percocet 5/325) 2 tab 1X PACU PRN PO Pain; Start 02/11 at 10:15; Stop 03/07/17 at 17:08; Status DC Oxycodone/ Acetaminophen (Percocet 5/325) 1 tab 1X PACU PRN PO PAIN Last administered on 03/07/17t 13:07; Start 03/07/17 at 10:30; Stop 03/07/17 at 17 :08; Status DC Fentanyl Citrate (Fentanyl 2ml Vial) 100 mcg STK-MED ONCE .ROUTE ; Start at 10:36; Stop 03/07/17 at 17:08; Status DC Hydromorphone HCl (Dilaudid) 2 mg STK-MED ONCE .ROUTE ; Start 03/07/17 at 10:59 ; Stop 03/07/17 at 17:08; Status DC Oxycodone/ Acetaminophen (Percocet 5/325) 1 tab PRN Q6HRS PRN PO PAIN; Start 03/07/17 at 12:15; Stop 03/08/17 at 17:01; Status DC Hydromorphone HCl (Dilaudid) 0.2 mg PRN Q4HRS PRN IVP PAIN; Start 03/07/17 at 12:15; Stop 03/08/17 at 17:01; Status DC Ketorolac Tromethamine (Toradol) 30 mg PRN Q6HRS PRN IV PAIN Last administered on 03/07/17 19:57; Start 03/07/17 at 12:15; Stop 03/08/17 at 17:01; Status DC Ondansetron HCl (Zofran) 4 mg PRN Q6HRS PRN IV NAUSEA/VOMITING; Start at 12:15; Stop 03/08/17 at 17:01; Status DC Oxycodone/ Acetaminophen (Percocet 5/325) 2 tab PRN Q6HRS PRN PO PAIN Last administered on 03/08/17 12:05; Start 03/07/17 at 12:30; Stop 03/08/17 at 17 :01; Status DC Pneumococcal Polyvalent Vaccine (Pneumovax 23) 0.5 ml ONCE ONCE VAX IM Last administered on 03/08/17 08:26; Start 03/08/17 at 09:00; Stop 03/08/17 at 09 :01; Status DC Ibuprofen (Motrin) 600 mg PRN Q6HRS PRN PO INFLAMMATION Last administered on 14:16; Start 03/08/17 at 13:15; Stop 03/08/17 at 17:01; Status DC Famotidine (Pepcid) 20 mg 1X ONCE PO Last administered on 03/08/17 14:16; Start 03/08/17 at 13:15; Stop 03/08/17 at 13:16; Status DC Active Scripts Active Reported Percocet 5-325 Mg Tablet (Oxycodone/Acetaminophen) 1 Each Tablet 1-2 Tab PO Q4- 6HRS Tylenol Extra Strength (Acetaminophen) 500 Mg Tablet 500 Mg PO PRN PRN Arimidex (Anastrozole) 1 Mg Tablet 1 Tab PO DAILY Hydrochlorothiazide Tablet (Hydrochlorothiazide) 12.5 Mg Tablet 1 Tab PO DAILY Celexa (Citalopram Hydrobromide) 20 Mg Tablet 1 Tab PO QHS Allergies Allergies Coded Allergies Type Severity Reaction Last Updated Verified Cephalosporins Allergy Severe Anaphylaxis 03/07/17 Yes Sulfa (Sulfonamide Antibiotics) Allergy Severe Anaphylaxis 03/07/17 Yes Penicillins Allergy Intermediate PSYCHOTIC EPISODE 03/07/17 Yes amoxicillin Allergy Intermediate Rash 03/07/17 Yes sumatriptan Adverse Reaction Severe CHEST PAIN 03/07/17 Yes bupropion Adverse Reaction Intermediate Anxiety 03/07/17 Yes Disposition/Orders: D/C to Home JEWELS MANRIQUE APRN Mar 11, 2017 13:22
== END 2017-03-08 14:30 | disposition home or self-care (01) ==
LOC: SURG 06:25 → 3 SO LND 12:18
PROVIDERS: ADMIT Surgery; ATTEND Surgery
DX: K81.1 Chronic cholecystitis (principal); Z23 Encounter for immunization
CPT/HCPCS: 47563; 74300; 88304; 90471; 90732; 96374; 96376; C1769; G0378; G0379; J1100; J1170; J1200; J1885; J1956; J2250; J2270; J2405; J2704; J2710; J3010; J3490; J7030; J7120; Q9967; S0028; J2001

== ENCOUNTER 2017-05-05 00:14 | Inpatient (IN) | payer OTHER ==
[2017-05-05 01:07] LABS: ADD MAN DIFF? NO
[2017-05-05] MEDS: fentaNYL PF VIAL 100 MCG/2 ML VIAL IV ×3 (01:12→04:29)
[2017-05-05] MEDS: PROCHLORPERAZINE 10 MG/2 ML VIAL. IV (01:12)
[2017-05-05] MEDS: diphenhydrAMINE 50 MG/ML VIAL IVP (01:12)
[2017-05-05 01:13] LABS: BASO # 0.1 x10^3/uL (0.0-0.2); BASO % 1 % (0-3); EOS # 0.2 x10^3/uL (0.0-0.7); EOS % 2 % (0-3); HEMOGLOBIN 14.6 g/dL (12.0-15.5); LYMPH # 4.4 x10^3/uL (1.0-4.8); LYMPH % 38 % (24-48); MEAN CORPUSCULAR HEMOGLOBIN 31 pg (25-35); MEAN CORPUSCULAR HGB CONC 35 g/dL (31-37); MEAN CORPUSCULAR VOLUME 90 fL (79-100); MONO # 0.7 x10^3/uL (0.0-1.1); MONO % 6 % (0-9); NEUT # 6.2 x10^3uL (1.8-7.7); NEUT % 53 % (31-73); PLATELET COUNT 355 x10^3/uL (140-400); RED BLOOD COUNT 4.69 x10^6/uL (3.50-5.40); RED CELL DISTRIBUTION WIDTH 12.7 % (11.5-14.5); WHITE BLOOD COUNT 11.5 x10^3/uL (4.0-11.0)
[2017-05-05] MEDS: IV NORMAL SALINE 1000ML BAG 1,000 ML IV (01:13)
[2017-05-05 01:26] LABS: AGAP ISTAT 16 mmol/L (6-14); BUN ISTAT 10 mg/dL (8-26); CHLORIDE ISTAT 98 mmol/L (98-110); CREATININE ISTAT 0.6 mg/dL (0.5-1.4); GLUCOSE ISTAT 120 mg/dL (70-99); HEMATOCRIT ISTAT 43 % (36-40); HEMOGLOBIN ISTAT 14.6 g/dL (12-15); ION CA ISTAT 1.11 mmol/L (1.13-1.32); POTASSIUM ISTAT 3.3 mmol/L (3.5-5.0); SODIUM ISTAT 139 mmol/L (135-145); TOT CO2 ISTAT 28 mmol/L (23-32)
[2017-05-05 01:35] LABS: ANION GAP 13 (6-14); BLOOD UREA NITROGEN 11 mg/dL (7-20); BUN/CREATININE RATIO 16 (6-20); CALCIUM 10.1 mg/dL (8.5-10.1); CARBON DIOXIDE 28 mmol/L (21-32); CHLORIDE 99 mmol/L (98-107); CREATININE 0.7 mg/dL (0.6-1.0); GFR 93.2; GLUCOSE 126 mg/dL (70-99); POTASSIUM 3.3 mmol/L (3.5-5.1); SODIUM 140 mmol/L (136-145)
[2017-05-05 01:41] LABS: ALBUMIN 4.1 g/dL (3.4-5.0); ALBUMIN/GLOBULIN RATIO 1.1 (1.0-1.7); ALK PHOS 167 U/L (46-116); ALT (SGPT) 28 U/L (14-59); AST (SGOT) 20 U/L (15-37); TOTAL BILIRUBIN 0.2 mg/dL (0.2-1.0); TOTAL PROTEIN 7.7 g/dL (6.4-8.2)
[2017-05-05 01:53] LABS: INFLUENZA A PATIENT NEGATIVE (NEGATIVE); INFLUENZA B PATIENT NEGATIVE (NEGATIVE); OBC FLU VALID
[2017-05-05] MEDS: KETOROLAC 30 MG/ML INJ. IV (02:15)
[2017-05-05 02:36] LABS: BILIRUBIN,URINE NEGATIVE (NEG); CLARITY,URINE CLEAR; COLOR,URINE YELLOW; GLUCOSE,URINE NEGATIVE (NEG); NITRITE,URINE NEGATIVE (NEG); PROTEIN,URINE NEGATIVE (NEG-TRACE); UROBILINOGEN,URINE 0.2 mg/dL (0.2 mg/dL)
[2017-05-05 02:43] LABS: BACTERIA,URINE 0 /HPF (0-FEW); SQUAMOUS EPITHELIAL CELL,UR FEW /LPF; WBC,URINE OCC /HPF (0-4)
[2017-05-05] MEDS ORDERED: ONDANSETRON PF 4 MG/2 ML VIAL. IV (02:45)
[2017-05-05] MEDS ORDERED: ACETAMINOPHEN 500 MG TABLET PO (12:15)
[2017-05-05] MEDS ORDERED: oxyCODONE/APAP 5/325 1 TAB TABLET PO ×2 (12:15)
[2017-05-05] MEDS: CITALOPRAM 20 MG TABLET. PO (14:38)
[2017-05-05] MEDS: hydroCHLOROthiazide 12.5 MG CAPSULE PO (14:38)
[2017-05-05] MEDS: ANASTROZOLE 1 MG TABLET PO (14:39)
== END 2017-05-05 16:03 | disposition home or self-care (01) | DRG 103 ==
LOC: ER 00:14 → 3 SO LND 02:09
DX: G43.909 Migraine, unspecified, not intractable, without status migrainosus (principal); F15.10 Other stimulant abuse, uncomplicated; F41.9 Anxiety disorder, unspecified; F32.9 Major depressive disorder, single episode, unspecified; I10 Essential (primary) hypertension; J45.909 Unspecified asthma, uncomplicated; M19.90 Unspecified osteoarthritis, unspecified site; Z85.3 Personal history of malignant neoplasm of breast; Z90.710 Acquired absence of both cervix and uterus; Z98.51 Tubal ligation status; Z90.13 Acquired absence of bilateral breasts and nipples; Z88.6 Allergy status to analgesic agent; Z88.1 Allergy status to other antibiotic agents; Z88.0 Allergy status to penicillin; Z88.2 Allergy status to sulfonamides; Z88.8 Allergy status to other drugs, medicaments and biological substances
CPT/HCPCS: 36415; 70450; 70551; 80047; 80053; 81001; 84484; 85025; 87804; 87804-59; 93005; 96361; 96374; 96375; 99285-25; J0780; J1200; J1885; J3010; J7030

== ENCOUNTER → 2017-07-05 | Outpatient (CLI) | payer OTHER ==
[2017-07-05 13:47] LABS: ADD MAN DIFF? NO
[2017-07-05 13:57] LABS: BASO # 0.1 x10^3/uL (0.0-0.2); BASO % 1 % (0-3); EOS # 0.2 x10^3/uL (0.0-0.7); EOS % 2 % (0-3); HEMATOCRIT 41.6 % (36.0-47.0); HEMOGLOBIN 13.9 g/dL (12.0-15.5); LYMPH # 3.7 x10^3/uL (1.0-4.8); LYMPH % 31 % (24-48); MEAN CORPUSCULAR HEMOGLOBIN 30 pg (25-35); MEAN CORPUSCULAR HGB CONC 34 g/dL (31-37); MEAN CORPUSCULAR VOLUME 91 fL (79-100); MONO # 0.6 x10^3/uL (0.0-1.1); MONO % 5 % (0-9); NEUT # 7.5 x10^3uL (1.8-7.7); NEUT % 62 % (31-73); PLATELET COUNT 357 x10^3/uL (140-400); RED BLOOD COUNT 4.59 x10^6/uL (3.50-5.40); RED CELL DISTRIBUTION WIDTH 12.9 % (11.5-14.5); WHITE BLOOD COUNT 12.1 x10^3/uL (4.0-11.0)
[2017-07-05 14:16] LABS: ALBUMIN 3.7 g/dL (3.4-5.0); ALBUMIN/GLOBULIN RATIO 0.9 (1.0-1.7); ALK PHOS 171 U/L (46-116); ALT (SGPT) 31 U/L (14-59); ANION GAP 9 (6-14); AST (SGOT) 16 U/L (15-37); BLOOD UREA NITROGEN 9 mg/dL (7-20); BUN/CREATININE RATIO 15 (6-20); CALCIUM 9.2 mg/dL (8.5-10.1); CARBON DIOXIDE 29 mmol/L (21-32); CHLORIDE 102 mmol/L (98-107); CREATININE 0.6 mg/dL (0.6-1.0); GFR 111.3; GLUCOSE 171 mg/dL (70-99); POTASSIUM 4.2 mmol/L (3.5-5.1); SODIUM 140 mmol/L (136-145); TOTAL BILIRUBIN 0.3 mg/dL (0.2-1.0); TOTAL PROTEIN 7.9 g/dL (6.4-8.2)
[2017-07-06 13:24] LABS: CA 27.29 10.3 U/mL (0.0-38.6)
== END | disposition home or self-care (01) ==
LOC: LAB 13:32
DX: C50.412 Malignant neoplasm of upper-outer quadrant of left female breast (principal); Z17.0 Estrogen receptor positive status [ER+]
CPT/HCPCS: 36415; 80053; 85025; 86300

== ENCOUNTER → 2017-07-13 | Outpatient (CLI) | payer OTHER ==
[2017-07-13] MEDS: IOHEXOL 300 MG/ML 100ML VIAL. IV (09:37)
[2017-07-13] MEDS: IOHEXOL 240 MG/ML 50ML VIAL. PO (09:37)
== END | disposition home or self-care (01) ==
LOC: CT 08:19
DX: C50.412 Malignant neoplasm of upper-outer quadrant of left female breast (principal); E11.9 Type 2 diabetes mellitus without complications; Z17.0 Estrogen receptor positive status [ER+]; Z90.13 Acquired absence of bilateral breasts and nipples; Z87.891 Personal history of nicotine dependence
CPT/HCPCS: 71260; 74177; Q9966; Q9967

== ENCOUNTER → 2017-08-16 | Outpatient (CLI) | payer OTHER ==
[2017-08-16 08:43] LABS: ADD MAN DIFF? NO
[2017-08-16 09:07] LABS: BASO % 1 % (0-3); EOS # 0.1 x10^3/uL (0.0-0.7); EOS % 2 % (0-3); HEMATOCRIT 41.4 % (36.0-47.0); HEMOGLOBIN 14.6 g/dL (12.0-15.5); LYMPH # 2.5 x10^3/uL (1.0-4.8); LYMPH % 27 % (24-48); MEAN CORPUSCULAR HEMOGLOBIN 32 pg (25-35); MEAN CORPUSCULAR HGB CONC 35 g/dL (31-37); MEAN CORPUSCULAR VOLUME 90 fL (79-100); MONO # 0.5 x10^3/uL (0.0-1.1); MONO % 6 % (0-9); NEUT # 6.3 x10^3uL (1.8-7.7); NEUT % 66 % (31-73); PLATELET COUNT 364 x10^3/uL (140-400); RED BLOOD COUNT 4.61 x10^6/uL (3.50-5.40); RED CELL DISTRIBUTION WIDTH 13.2 % (11.5-14.5); WHITE BLOOD COUNT 9.6 x10^3/uL (4.0-11.0)
[2017-08-16 09:20] LABS: THYROID STIM HORMONE (TSH) 1.308 uIU/mL (0.358-3.74)
[2017-08-16 09:21] LABS: ALBUMIN/GLOBULIN RATIO 1.1 (1.0-1.7); ALK PHOS 168 U/L (46-116); ALT (SGPT) 36 U/L (14-59); ANION GAP 8 (6-14); AST (SGOT) 23 U/L (15-37); BLOOD UREA NITROGEN 7 mg/dL (7-20); BUN/CREATININE RATIO 10 (6-20); CALCIUM 9.5 mg/dL (8.5-10.1); CARBON DIOXIDE 30 mmol/L (21-32); CHLORIDE 100 mmol/L (98-107); CHOLESTEROL 170 mg/dL (0-200); CREATININE 0.7 mg/dL (0.6-1.0); GFR 92.7; GLUCOSE 146 mg/dL (70-99); HDLC 42 mg/dL (40-60); LDLC 100 mg/dL (0-100); NON-HDL CHOLESTEROL 128 mg/dL (0-129); POTASSIUM 3.7 mmol/L (3.5-5.1); SODIUM 138 mmol/L (136-145); TOTAL BILIRUBIN 0.4 mg/dL (0.2-1.0); TOTAL PROTEIN 7.5 g/dL (6.4-8.2); TRIGLYCERIDES 138 mg/dL (0-150); VLDLC 28 mg/dL (0-40)
[2017-08-17 04:20] LABS: HEMOGLOBIN A1C 7.4 % (4.8-5.6)
[2017-08-17 12:20] LABS: MICROALBUMIN, RANDOM URINE <3.0 ug/mL (Not Estab.)
== END | disposition home or self-care (01) ==
LOC: LAB 08:28
DX: E11.9 Type 2 diabetes mellitus without complications (principal); I11.0 Hypertensive heart disease with heart failure; I50.9 Heart failure, unspecified; E66.9 Obesity, unspecified; R74.8 Abnormal levels of other serum enzymes
CPT/HCPCS: 36415; 80053; 80061; 82043; 83036; 84443; 85025

== ENCOUNTER → 2017-12-08 | Outpatient (CLI) | payer OTHER ==
[2017-05-05 15:41] VITALS: BP 123/76
[~2017-12-08] MED LIST changes: -ANAS1TAB3 PO; +ANAS1TAB47 PO
== END | disposition home or self-care (01) ==
LOC: LAB 07:28
PROVIDERS: ATTEND Family Medicine
DX: E11.9 Type 2 diabetes mellitus without complications (principal); I11.0 Hypertensive heart disease with heart failure; I50.9 Heart failure, unspecified; E87.6 Hypokalemia; G43.909 Migraine, unspecified, not intractable, without status migrainosus; Z88.2 Allergy status to sulfonamides; Z88.0 Allergy status to penicillin; Z88.1 Allergy status to other antibiotic agents; Z88.6 Allergy status to analgesic agent; Z88.8 Allergy status to other drugs, medicaments and biological substances; Z87.891 Personal history of nicotine dependence; Z85.3 Personal history of malignant neoplasm of breast; Z90.710 Acquired absence of both cervix and uterus; Z90.13 Acquired absence of bilateral breasts and nipples; Z81.8 Family history of other mental and behavioral disorders; Z82.61 Family history of arthritis
CPT/HCPCS: 36415; 83036

== ENCOUNTER 2018-03-05 07:24 | Emergency (ER) | payer OTHER ==
[~2018-03-05] VITALS: Ht 167.6 cm; Wt 79.4 kg
[~2018-03-05 07:24] MED LIST changes: -OXYC-323 PO; +OXYC1TAB15 PO
[2018-03-05] MEDS ORDERED: IV NORMAL SALINE 1000ML BAG 1,000 ML IV ONE (08:00)
--- NOTE | 2018-03-05 08:08 | PHYS DOC ---
Past Medical History Past Medical History: Cancer, Diabetes-Type II, Hypertension Additional Past Medical Histor: EPIPLOIC APPENDAGITIS, BREAST CANCER W CHEMO Additional Past Surgical Histo: RIGHT KNEE SX, SINUS SX, bilat mastectomy, ADELINA , Cholecystectomy Alcohol Use: None Drug Use: None Adult General Chief Complaint Chief Complaint: ABDOMINAL PAIN HPI HPI This is a 42-year-old female who presents with 3 days of abdominal pain. Patient states pain is constant, 6/10, initially began in the periumbilical region and has migrated to the right lower quadrant. She decided to come to the emergency department today because her symptoms have not gotten any better. Patient denies any aggravating or alleviating factors. Patient reports she had nausea and vomited only on the day her symptoms began. Denies fevers, chills, changes in bowel habits, bloody/dark stool, dysuria, flank pain. She has had her gallbladder removed and a ADELINA, she also has a history of IBS, breast CA and epiploic appendigitis. Review of Systems Review of Systems Constitutional: Denies fever or chills [] Eyes: Denies change in visual acuity, redness, or eye pain [] HENT: Denies nasal congestion or sore throat [] Respiratory: Denies cough or shortness of breath [] Cardiovascular: Denies chest pain or palpitations GI: Reports abdominal pain; Denies bloody/dark stools, constipation, current nausea/vomiting [] : Denies dysuria or hematuria [] Musculoskeletal: Denies back pain, flank pain or joint pain [] Integument: Denies rash or skin lesions [] Neurologic: Denies headache, focal weakness or sensory changes [] Complete systems were reviewed and found to be within normal limits, except as documented in this note. Current Medications Current Medications Current Medications Medications (Trade) Dose Ordered Sig/Christofer Start Time Stop Time Status Last Admin Dose Admin Ciprofloxacin (Cipro) 500 mg 1X ONCE 03/05/18 10:00 03/05/18 10:01 Iohexol (Omnipaque 300 Mg/ml) 75 ml 1X ONCE 03/05/18 09:00 03/05/18 09:01 DC 03/05/18 09:10 75 ML Metronidazole (Flagyl) 500 mg 1X ONCE 03/05/18 10:00 03/05/18 10:01 Sodium Chloride 1,000 ml @ 1,000 mls/hr 1X ONCE 03/05/18 08:00 03/05/18 08:59 DC 03/05/18 08:00 1,000 MLS/HR Allergies Allergies Allergies Coded Allergies Type Severity Reaction Last Updated Verified Cephalosporins Allergy Severe Anaphylaxis 03/07/17 Yes Sulfa (Sulfonamide Antibiotics) Allergy Severe Anaphylaxis 03/07/17 Yes Penicillins Allergy Intermediate PSYCHOTIC EPISODE 03/07/17 Yes amoxicillin Allergy Intermediate Rash 03/07/17 Yes sumatriptan Adverse Reaction Severe CHEST PAIN 03/07/17 Yes bupropion Adverse Reaction Intermediate Anxiety 03/07/17 Yes Physical Exam Physical Exam Constitutional: Well developed, well nourished, no acute distress, non-toxic appearance. [] HENT: Normocephalic, atraumatic, bilateral external ears normal, mucous membranes moist Eyes: Conjunctiva normal, no discharge. [] Neck: Normal range of motion, no tenderness, supple, no stridor. [] Cardiovascular: Heart rate regular rhythm, no murmur [] Lungs & Thorax: Bilateral breath sounds clear to auscultation [] Abdomen: Bowel sounds normoactive, soft, mild RLQ tenderness to deep palpation, negative rovsing sign, no pain with resisted hip flexion, no masses, no rebound tenderness, no guarding, no rigidity. [] Skin: Warm, dry, no erythema, no rash. [] Back: No tenderness, no CVA tenderness. [] Extremities: No tenderness, no cyanosis, no clubbing, ROM intact, no edema. [] Neurologic: Alert and oriented X 3, normal motor function, normal sensory function, no focal deficits noted. [] Psychologic: Affect normal, judgement normal, mood normal. [] Current Patient Data Vital Signs Vital Signs Date Time Temp Pulse Resp B/P (MAP) Pulse Ox O2 Delivery O2 Flow Rate FiO2 03/05/18 07:40 98.8 80 16 149/77 (101) 98 Room Air 98.8 Lab Values Laboratory Tests Test 03/05/18 07:35 03/05/18 08:15 Urine Collection Type Unknown Urine Color Yellow Urine Clarity Clear Urine pH 6.5 Urine Specific [place] <=1.005 Urine Protein Negative mg/dL (NEG-TRACE) Urine Glucose (UA) Negative mg/dL (NEG) Urine Ketones (Stick) Negative mg/dL (NEG) Urine Blood Small (NEG) Urine Nitrite Negative (NEG) Urine Bilirubin Negative (NEG) Urine Urobilinogen Dipstick 0.2 mg/dL (0.2 mg/dL) Urine Leukocyte Esterase Negative (NEG) Urine RBC Occ /HPF (0-2) Urine WBC Occ /HPF (0-4) Urine Squamous Epithelial Cells Few /LPF Urine Bacteria Few /HPF (0-FEW) White Blood Count 13.1 x10^3/uL (4.0-11.0) H Red Blood Count 4.23 x10^6/uL (3.50-5.40) Hemoglobin 13.2 g/dL (12.0-15.5) Hematocrit 38.4 % (36.0-47.0) Mean Corpuscular Volume 91 fL (79-100) Mean Corpuscular Hemoglobin 31 pg (25-35) Mean Corpuscular Hemoglobin Concent 34 g/dL (31-37) Red Cell Distribution Width 13.5 % (11.5-14.5) Platelet Count 349 x10^3/uL (140-400) Neutrophils (%) (Auto) 53 % (31-73) Lymphocytes (%) (Auto) 38 % (24-48) Monocytes (%) (Auto) 6 % (0-9) Eosinophils (%) (Auto) 2 % (0-3) Basophils (%) (Auto) 1 % (0-3) Neutrophils # (Auto) 7.0 x10^3uL (1.8-7.7) Lymphocytes # (Auto) 4.9 x10^3/uL (1.0-4.8) H Monocytes # (Auto) 0.8 x10^3/uL (0.0-1.1) Eosinophils # (Auto) 0.3 x10^3/uL (0.0-0.7) Basophils # (Auto) 0.1 x10^3/uL (0.0-0.2) Sodium Level 140 mmol/L (136-145) Potassium Level 3.8 mmol/L (3.5-5.1) Chloride Level 101 mmol/L (98-107) Carbon Dioxide Level 29 mmol/L (21-32) Anion Gap 10 (6-14) Blood Urea Nitrogen 10 mg/dL (7-20) Creatinine 0.7 mg/dL (0.6-1.0) Estimated GFR (Cockcroft-Gault) 92.7 BUN/Creatinine Ratio 14 (6-20) Glucose Level 118 mg/dL (70-99) H Calcium Level 9.2 mg/dL (8.5-10.1) Total Bilirubin 0.2 mg/dL (0.2-1.0) Aspartate Amino Transferase (AST) 21 U/L (15-37) Alanine Aminotransferase (ALT) 40 U/L (14-59) Alkaline Phosphatase 133 U/L (46-116) H Total Protein 6.9 g/dL (6.4-8.2) Albumin 3.6 g/dL (3.4-5.0) Albumin/Globulin Ratio 1.1 (1.0-1.7) Lipase 245 U/L (73-393) Laboratory Tests 03/05/18 08:15 Laboratory Tests 03/05/18 08:15 EKG EKG [] Radiology/Procedures Radiology/Procedures [] Course & Med Decision Making Course & Med Decision Making Pertinent Labs and Imaging studies reviewed. (See chart for details) [] Dragon Disclaimer Dragon Disclaimer This electronic medical record was generated, in whole or in part, using a voice recognition dictation system. Departure Departure Impression: Primary Impression: Acute diverticulitis Disposition: 01 HOME, SELF-CARE Condition: STABLE Referrals: LILLIAN CAMERON MD (PCP) WALI GOMEZ MD Patient Instructions: Diverticulitis, Gybl-lr-Ifdy Scripts Metronidazole (FLAGYL) 500 Mg Tablet 500 MG PO TID for 7 Days, #21 TAB Prov: NGOZI REYES DO 03/05/18 Ciprofloxacin Hcl (CIPRO) 500 Mg Tablet 1 TAB PO BID, #14 TAB Prov: NGOZI REYES DO 03/05/18 NGOZI REYES DO Mar 05, 2018 08:08
[2018-03-05 08:23] LABS: BILIRUBIN,URINE NEGATIVE (NEG); CLARITY,URINE CLEAR; COLOR,URINE YELLOW; NITRITE,URINE NEGATIVE (NEG); PH,URINE 6.5; PROTEIN,URINE NEGATIVE (NEG-TRACE); UROBILINOGEN,URINE 0.2 mg/dL (0.2 mg/dL)
[2018-03-05 08:32] LABS: BASO # 0.1 x10^3/uL (0.0-0.2); BASO % 1 % (0-3); EOS # 0.3 x10^3/uL (0.0-0.7); EOS % 2 % (0-3); HEMATOCRIT 38.4 % (36.0-47.0); HEMOGLOBIN 13.2 g/dL (12.0-15.5); LYMPH # 4.9 x10^3/uL (1.0-4.8); LYMPH % 38 % (24-48); MEAN CORPUSCULAR HEMOGLOBIN 31 pg (25-35); MEAN CORPUSCULAR HGB CONC 34 g/dL (31-37); MEAN CORPUSCULAR VOLUME 91 fL (79-100); MONO # 0.8 x10^3/uL (0.0-1.1); MONO % 6 % (0-9); NEUT % 53 % (31-73); PLATELET COUNT 349 x10^3/uL (140-400); RED BLOOD COUNT 4.23 x10^6/uL (3.50-5.40); RED CELL DISTRIBUTION WIDTH 13.5 % (11.5-14.5); WHITE BLOOD COUNT 13.1 x10^3/uL (4.0-11.0)
[2018-03-05 08:38] LABS: SQUAMOUS EPITHELIAL CELL,UR FEW /LPF
[2018-03-05 08:39] LABS: BACTERIA,URINE FEW /HPF (0-FEW); RBC,URINE OCC /HPF (0-2); WBC,URINE OCC /HPF (0-4)
[2018-03-05 08:45] LABS: CALCIUM 9.2 mg/dL (8.5-10.1); CREATININE 0.7 mg/dL (0.6-1.0); GFR 92.7; POTASSIUM 3.8 mmol/L (3.5-5.1)
[2018-03-05 08:58] LABS: ALBUMIN 3.6 g/dL (3.4-5.0); ALBUMIN/GLOBULIN RATIO 1.1 (1.0-1.7); TOTAL BILIRUBIN 0.2 mg/dL (0.2-1.0); TOTAL PROTEIN 6.9 g/dL (6.4-8.2)
[2018-03-05] MEDS ORDERED: IOHEXOL 300 MG/ML 100ML VIAL. IV ONE (09:00)
[2018-03-05 09:30] VITALS: BP 107/54
--- NOTE | 2018-03-05 09:37 | RAD ---
CT abdomen and pelvis with contrast PQRS statement: CT scans at this facility use dose reduction including either automated exposure control, iterative reconstructions, and /or weight based radiation dosing via mA and kV modification when appropriate to reduce radiation dose to as low as reasonably achievable. COMPARISON: CT abdomen and pelvis July 13, 2017. HISTORY: Right lower quadrant pain, appendicitis TECHNIQUE: Helical CT imaging of the abdomen and pelvis with 75 mL Omnipaque 350 venous contrast. Abdomen findings: Disc height loss and mild disc bulges lower lumbar spine. Cholecystectomy. Hypodensity of the liver could be fatty. Tiny subcentimeter hyperdensity left renal upper pole too small to characterize statistically most likely a small cyst. 7 mm left renal lower pole nonobstructing calculus. Right kidney, adrenal glands, pancreas, spleen unremarkable. No bowel obstruction. The appendix is negative. Acute sigmoid: Diverticulitis with surrounding edema about the diverticulum from the distal sigmoid anterior wall, no abscess or pneumoperitoneum. No abdominal fluid or adenopathy. Pelvis findings: 2 cm oblong umbilical fatty abdominal wall hernia. Hysterectomy. Ovaries absent. Bladder wall mildly thickened relative to prior imaging no surrounding edema evident. Rectum and bones unremarkable. No fluid or adenopathy. IMPRESSION: 1. Acute sigmoid colon diverticulitis with inflammatory edema surrounding the diverticulum. No abscess. 2. The appendix is negative. 3. There is mild bladder wall thickening, a change from prior imaging, this could be due to muscular hypertrophy or changes of cystitis. 4. Nonobstructing left renal calculus. Electronically signed by: Krish Clinton MD (03/05/2018 9:33 AM) [facility]
[2018-03-05] MEDS ORDERED: CIPR500T94 PO (09:58)
[2018-03-05] MEDS ORDERED: METR500T PO (09:58)
[2018-03-05] MEDS ORDERED: CIPROFLOXACIN HCL 250 MG TABLET. PO ONE (10:00)
[2018-03-05] MEDS ORDERED: metroNIDAZOLE 500 MG TABLET PO ONE (10:00)
== END 2018-03-05 10:32 | disposition home or self-care (01) ==
LOC: ER 07:24
DX: K57.92 Diverticulitis of intestine, part unspecified, without perforation or abscess without bleeding (principal); R11.2 Nausea with vomiting, unspecified; I10 Essential (primary) hypertension; E11.9 Type 2 diabetes mellitus without complications; Z90.49 Acquired absence of other specified parts of digestive tract; Z88.0 Allergy status to penicillin; Z88.1 Allergy status to other antibiotic agents; Z88.2 Allergy status to sulfonamides; Z88.8 Allergy status to other drugs, medicaments and biological substances
CPT/HCPCS: 36415; 74177; 80053; 81001; 83690; 85025; 96360; 99284; J7030; Q9967

== ENCOUNTER → 2018-03-15 | Outpatient (CLI) | payer OTHER ==
[2018-03-05 09:30] VITALS: BP 107/54
[~2018-03-15] MED LIST changes: +CIPR500T94 PO; +METR500T PO
[2018-03-15 07:24] LABS: ALBUMIN 3.8 g/dL (3.4-5.0); ALBUMIN/GLOBULIN RATIO 1.2 (1.0-1.7); CALCIUM 9.2 mg/dL (8.5-10.1); CREATININE 0.7 mg/dL (0.6-1.0); GFR 92.7; POTASSIUM 3.7 mmol/L (3.5-5.1); TOTAL BILIRUBIN 0.1 mg/dL (0.2-1.0)
[2018-03-15 19:14] LABS: HEMOGLOBIN A1C 7.4 % (4.8-5.6)
== END | disposition home or self-care (01) ==
LOC: LAB 06:47
PROVIDERS: ATTEND Family Medicine
DX: E11.9 Type 2 diabetes mellitus without complications (principal); R74.8 Abnormal levels of other serum enzymes
CPT/HCPCS: 36415; 80053; 82977; 83036

== ENCOUNTER → 2018-04-19 | Day surgery (SDC) | payer OTHER ==
[~2018-04-19] MED LIST changes: +CHOL2000 PO; +CLON0.5T11 PO; +HYDROmorphone 2 MG/ML VIAL IV PRN; +IV RINGERS,LACTATED 1000ML 1,000 ML IV SCH; +LIDOCAINE 1% PF 2 ML VIAL. ID PRN; +METF500T9 PO; +MORPHINE SULFATE 2 MG/ML VIAL. IV PRN; +MULT1TAB52 PO; +PROCHLORPERAZINE 10 MG/2 ML VIAL. IV PRN; +PROPOFOL 40 ML IV ONE; +VITAMIN B 12; +fentaNYL PF VIAL 100 MCG/2 ML VIAL IV PRN
[2018-04-19 08:00] VITALS: BP 112/64
--- NOTE | 2018-04-20 18:08 | PATHOLOGY ---
[facility] Accession Number: [id number] . 01 Material submitted: . RANDOM COLON BIOPSIES . 01 Clinical history: . Diarrhea . 02 Diagnosis: Colonic mucosa, random colon biopsies: - No significant pathologic abnormalities. . (JPM:mm; 04/20/2018) [facility]/04/20/2018 . 02 Comment: Sections of the random colon biopsy reveal multiple segments of colonic mucosa containing two small mucosal-associated lymphoid aggregates. There is no evidence of a chronic destructive colitis, lymphocytic colitis, or collagenous colitis. . (JPM:mml; 04/20/2018) . 02 Electronically signed: . Dominguez Shah MD, Pathologist NPI- [id number] . 01 Gross description: . Received in formalin labeled "Vital, Niki, random colon biopsies," are multiple segments of foy soft tissue measuring 2.0 x 0.6 x 0.1 cm in aggregate dimensions. The specimen is filtered and entirely submitted in cassette A1. (TSD; 04/19/2018) TOB/TOB . 02 Pathologist provided ICD-10: R19.7 . 02 CPT . 728068 Specimen Comment: A courtesy copy of this report has been sent to Specimen Comment: [phone], . Specimen Comment: Report sent to / DR CAMERON Specimen Comment: A duplicate report has been generated due to demographic update Specimen Comment: of the patient's Date of , Age, Gender, and/or Specimen Date. Specimen Comment: Please review patient results, reference intervals, and calculated Specimen Comment: results that may have been affected by this change. Performed at: 01 [facility] [address], [place] [id number] MD Tesfaye Taylor MD Phone: [phone] Performed at: [address] [id number] MD Dominguez Shah MD Phone: [phone]
== END | disposition home or self-care (01) ==
LOC: SURG 06:07
PROVIDERS: ATTEND Internal Medicine Gastroenterology
DX: K57.30 Diverticulosis of large intestine without perforation or abscess without bleeding (principal); K64.0 First degree hemorrhoids; F41.9 Anxiety disorder, unspecified; I10 Essential (primary) hypertension; F32.9 Major depressive disorder, single episode, unspecified; E11.9 Type 2 diabetes mellitus without complications; K58.9 Irritable bowel syndrome, unspecified; Z88.0 Allergy status to penicillin; Z88.2 Allergy status to sulfonamides; Z88.1 Allergy status to other antibiotic agents; Z88.8 Allergy status to other drugs, medicaments and biological substances; Z85.3 Personal history of malignant neoplasm of breast; M19.90 Unspecified osteoarthritis, unspecified site; Z83.71 Family history of colonic polyps; Z82.49 Family history of ischemic heart disease and other diseases of the circulatory system; Z79.899 Other long term (current) drug therapy; Z90.49 Acquired absence of other specified parts of digestive tract; Z90.710 Acquired absence of both cervix and uterus; Z98.51 Tubal ligation status; Z98.890 Other specified postprocedural states; Z79.84 Long term (current) use of oral hypoglycemic drugs
CPT/HCPCS: 45380; J2704

== ENCOUNTER → 2018-06-07 | Outpatient (CLI) | payer OTHER ==
[2018-04-19 08:00] VITALS: BP 112/64
[~2018-06-07] MED LIST changes: -HYDROmorphone 2 MG/ML VIAL IV PRN; -IV RINGERS,LACTATED 1000ML 1,000 ML IV SCH; -LIDOCAINE 1% PF 2 ML VIAL. ID PRN; -MORPHINE SULFATE 2 MG/ML VIAL. IV PRN; -PROCHLORPERAZINE 10 MG/2 ML VIAL. IV PRN; -PROPOFOL 40 ML IV ONE; -fentaNYL PF VIAL 100 MCG/2 ML VIAL IV PRN
--- NOTE | 2018-06-07 08:57 | RAD ---
Thyroid ultrasound, 06/07/2018: HISTORY: Thyroid enlargement The right lobe of the gland measures 5.1 x 1.6 x 1.7 cm while the left lobe of the gland measures 4.5 x 1.3 x 1.4 cm. There is a 9 mm oval-shaped predominantly cystic nodule in the lower pole of the right lobe of the gland. It contains several echogenic foci with comet tail artifacts compatible with inspissated colloid. The appearance is typical of a benign colloid nodule. A couple of other very tiny (2-3 mm) similar nodules are seen in both lobes. No suspicious thyroid nodule is seen. IMPRESSION: The thyroid gland is at the upper limits of normal in size and contain several benign-appearing subcentimeter nodules as described above. Electronically signed by: Zaid Philip MD (06/07/2018 8:53 AM) [facility]
== END | disposition home or self-care (01) ==
LOC: US 06:48
PROVIDERS: ATTEND Family Medicine
DX: E04.2 Nontoxic multinodular goiter (principal)
CPT/HCPCS: 76536

== ENCOUNTER → 2018-10-10 | Outpatient (CLI) | payer OTHER ==
[2018-04-19 08:00] VITALS: BP 112/64
[2018-10-11 23:10] LABS: HEMOGLOBIN A1C 6.8 % (4.8-5.6)
== END | disposition home or self-care (01) ==
LOC: LAB 21:07
PROVIDERS: ATTEND Family Medicine
DX: E11.9 Type 2 diabetes mellitus without complications (principal)
CPT/HCPCS: 36415; 83036

== ENCOUNTER → 2018-10-14 | Outpatient (CLI) | payer OTHER ==
[2018-04-19 08:00] VITALS: BP 112/64
[2018-10-15 00:01] LABS: FREE T4 1.09 ng/dL (0.76-1.46); THYROID STIM HORMONE (TSH) 1.554 uIU/mL (0.358-3.74)
== END | disposition home or self-care (01) ==
LOC: LAB 22:39
PROVIDERS: ATTEND Internal Medicine Endocrinology, Diabetes & Metabolism
DX: E04.2 Nontoxic multinodular goiter (principal)
CPT/HCPCS: 36415; 84439; 84443; 86800

== ENCOUNTER 2018-11-20 18:59 | Emergency (ER) | payer OTHER ==
[2018-04-19 08:00] VITALS: BP 112/64
[~2018-11-20 18:59] MED LIST changes: +CLON-77 PO; -CLON0.5T11 PO
== END 2018-11-20 20:34 | disposition left against medical advice (07) ==
LOC: ER 18:59
DX: R42 Dizziness and giddiness (principal); Z53.21 Procedure and treatment not carried out due to patient leaving prior to being seen by health care provider

== ENCOUNTER 2018-12-06 23:49 | Emergency (ER) | payer OTHER ==
[~2018-12-06] VITALS: Ht 167.6 cm; Wt 72.6 kg
[~2018-12-06 23:49] MED LIST changes: +METF500T11 PO; -METF500T9 PO
[2018-12-06 23:50] VITALS: BP 129/85
--- NOTE | 2018-12-07 00:08 | PHYS DOC ---
Past Medical History Past Medical History: Cancer, Diabetes-Type II, Hypertension Additional Past Medical Histor: EPIPLOIC APPENDAGITIS, BREAST CANCER W CHEMO 05/2015 Past Surgical History: Appendectomy Additional Past Surgical Histo: RIGHT KNEE SX, SINUS SX, bilat mastectomy, ADELINA, Cholecystectomy Alcohol Use: None Drug Use: None Adult General Chief Complaint Chief Complaint: General Complaint HPI HPI Patient is a 43 year old female with history of hypertension, diabetes type 2, breast cancer and treated who presents to the ED today requesting tetanus shot, patient states her lawnmower accidentally cut her on the back of the right leg. She has no other complaints. Review of Systems Review of Systems Constitutional: Denies fever or chills [] Musculoskeletal: Denies back pain or joint pain [] Integument: Right lower leg laceration and tetanus shot request Neurologic: Denies headache, focal weakness or sensory changes [] All other systems were reviewed and found to be within normal limits, except as documented in this note. Current Medications Current Medications Current Medications Medications (Trade) Dose Ordered Sig/Christofer Start Time Stop Time Status Last Admin Dose Admin Diphtheria/ Tetanus/Acell Pertussis (Boostrix) 0.5 ml ONCE ONCE 12/07/18 00:15 12/07/18 00:16 UNV Allergies Allergies Allergies Coded Allergies Type Severity Reaction Last Updated Verified Cephalosporins Allergy Severe Anaphylaxis 04/19/18 Yes Sulfa (Sulfonamide Antibiotics) Allergy Severe Anaphylaxis 04/19/18 Yes Penicillins Allergy Intermediate PSYCHOTIC EPISODE 04/19/18 Yes amoxicillin Allergy Intermediate Rash 04/19/18 Yes sumatriptan Adverse Reaction Severe CHEST PAIN 04/19/18 Yes bupropion Adverse Reaction Intermediate Anxiety 04/19/18 Yes Physical Exam Physical Exam Constitutional: Well developed, well nourished, no acute distress, non-toxic appearance. [] Skin: Warm, dry, right lower extremity below the cough with a superficial laceration approximately 3 cm long. Back: No tenderness, no CVA tenderness. [] Extremities: No tenderness, no cyanosis, no clubbing, ROM intact, no edema. [] Neurologic: Alert and oriented X 3, normal motor function, normal sensory func tion, no focal deficits noted. [] Psychologic: Affect normal, judgement normal, mood normal. [] Current Patient Data Vital Signs Vital Signs Date Time Temp Pulse Resp B/P (MAP) Pulse Ox O2 Delivery O2 Flow Rate FiO2 12/06/18 23:50 98.7 78 15 129/85 (100) 98 Room Air 98.7 EKG EKG [] Radiology/Procedures Radiology/Procedures [] Course & Med Decision Making Course & Med Decision Making Pertinent Labs and Imaging studies reviewed. (See chart for details) This is a 43-year-old female patient who presents to the ED today requesting a tetanus shot after being cut by a lawnmower today. She has a superficial laceration to the right lower extremity. Tetanus was administered. Wound care instructions and return precautions provided. Dragon Disclaimer Dragon Disclaimer This electronic medical record was generated, in whole or in part, using a voice recognition dictation system. Departure Departure Impression: Primary Impression: Laceration of right lower extremity Additional Impression: Vaccine for tetanus toxoid Disposition: HOME, SELF-CARE Condition: STABLE Referrals: YEISON CULP MD (PCP) Follow-up with your own doctor as needed Patient Instructions: Diphtheria Toxoid; Tetanus Toxoid Adsorbed, DT, Td, Laceration Care, Adult Additional Instructions: You were given a tetanus shot in the emergency room. Keep the laceration clean and dry. Apply Neosporin to the area twice a day. Monitor the area for any signs of infection including but not limited to increased redness, warmth, yellow d rainage from the area and return to the ED if they occur. You can also follow-up with your own primary care doctor. Problem Qualifiers Primary Impression: Laceration of right lower extremity Encounter type: initial encounter Qualified Codes: S81.811A - Laceration without foreign body, right lower leg, initial encounter DIMITRIOS CARRILLO APRN Dec 07, 2018 00:08
[2018-12-07] MEDS: DIPHTH,PERTUSS(ACELL),TET TOX 0.5 ML DISP.SYRIN. VAX IM ONE (00:25)
== END 2018-12-07 00:25 | disposition home or self-care (01) ==
LOC: ER 23:49
DX: S81.811A Laceration without foreign body, right lower leg, initial encounter (principal); I10 Essential (primary) hypertension; E11.9 Type 2 diabetes mellitus without complications; Z85.3 Personal history of malignant neoplasm of breast; Z90.89 Acquired absence of other organs; Z90.49 Acquired absence of other specified parts of digestive tract; Z90.13 Acquired absence of bilateral breasts and nipples; Z88.1 Allergy status to other antibiotic agents; Z88.2 Allergy status to sulfonamides; Z88.0 Allergy status to penicillin; Z88.8 Allergy status to other drugs, medicaments and biological substances; W26.8XXA Contact with other sharp object(s), not elsewhere classified, initial encounter; Y93.89 Activity, other specified; Y92.89 Other specified places as the place of occurrence of the external cause; Y99.8 Other external cause status
CPT/HCPCS: 90471; 90715; 99283

== ENCOUNTER → 2019-08-31 | Outpatient (CLI) | payer OTHER ==
[~2019-08-31] MED LIST changes: +METF-658 PO; -METF500T11 PO; +MULT-445 PO; -MULT1TAB52 PO
[2019-08-31 07:48] LABS: BASO # 0.1 x10^3/uL (0.0-0.2); BASO % 1 % (0-3); EOS # 0.3 x10^3/uL (0.0-0.7); EOS % 3 % (0-3); HEMATOCRIT 40.2 % (36.0-47.0); HEMOGLOBIN 13.5 g/dL (12.0-15.5); LYMPH # 4.9 x10^3/uL (1.0-4.8); LYMPH % 42 % (24-48); MEAN CORPUSCULAR HEMOGLOBIN 31 pg (25-35); MEAN CORPUSCULAR HGB CONC 34 g/dL (31-37); MEAN CORPUSCULAR VOLUME 92 fL (79-100); MONO # 0.7 x10^3/uL (0.0-1.1); MONO % 6 % (0-9); NEUT # 5.7 x10^3/uL (1.8-7.7); NEUT % 49 % (31-73); PLATELET COUNT 349 x10^3/uL (140-400); RED BLOOD COUNT 4.37 x10^6/uL (3.50-5.40); RED CELL DISTRIBUTION WIDTH 13.3 % (11.5-14.5); WHITE BLOOD COUNT 11.7 x10^3/uL (4.0-11.0)
[2019-08-31 07:58] LABS: ALBUMIN 3.8 g/dL (3.4-5.0); ALBUMIN/GLOBULIN RATIO 1.3 (1.0-1.7); CALCIUM 8.4 mg/dL (8.5-10.1); CHOLESTEROL/HDL RATIO 3.8; CREATININE 0.7 mg/dL (0.6-1.0); GFR 91.8; POTASSIUM 3.8 mmol/L (3.5-5.1); TOTAL BILIRUBIN 0.2 mg/dL (0.2-1.0); TOTAL PROTEIN 6.8 g/dL (6.4-8.2)
[2019-09-01 01:08] LABS: CREAT RD UR 21.1 mg/dL (Not Estab.); MICRO CREAT RATIO <14 mg/g creat (0-29); MICROALB RD UR <3.0 ug/mL (Not Estab.)
[2019-09-02 01:07] LABS: HEMOGLOBIN A1C 7.2 % (4.8-5.6)
== END ==
LOC: LAB 06:06
PROVIDERS: ATTEND Family Medicine
DX: I10 Essential (primary) hypertension (principal); E11.9 Type 2 diabetes mellitus without complications
CPT/HCPCS: 36415; 80053; 80061; 82043; 82570; 83036; 85025

== ENCOUNTER → 2020-10-20 | Outpatient (CLI) | payer OTHER ==
[~2020-10-20] MED LIST changes: -CLIN150C14 PO; +CLIN150C16 PO
[2020-10-20 07:49] LABS: BASO # 0.1 x10^3/uL (0.0-0.2); BASO % 0 % (0-3); EOS # 0.2 x10^3/uL (0.0-0.7); EOS % 1 % (0-3); HEMATOCRIT 38.9 % (36.0-47.0); HEMOGLOBIN 13.2 g/dL (12.0-15.5); LYMPH # 5.9 x10^3/uL (1.0-4.8); LYMPH % 44 % (24-48); MEAN CORPUSCULAR HEMOGLOBIN 31 pg (25-35); MEAN CORPUSCULAR HGB CONC 34 g/dL (31-37); MEAN CORPUSCULAR VOLUME 92 fL (79-100); MONO # 0.8 x10^3/uL (0.0-1.1); MONO % 6 % (0-9); NEUT # 6.6 x10^3/uL (1.8-7.7); NEUT % 49 % (31-73); PLATELET COUNT 331 x10^3/uL (140-400); RED BLOOD COUNT 4.26 x10^6/uL (3.50-5.40); RED CELL DISTRIBUTION WIDTH 12.7 % (11.5-14.5); WHITE BLOOD COUNT 13.5 x10^3/uL (4.0-11.0)
[2020-10-20 08:17] LABS: ALBUMIN 3.8 g/dL (3.4-5.0); ALBUMIN/GLOBULIN RATIO 1.2 (1.0-1.7); CALCIUM 9.2 mg/dL (8.5-10.1); CREATININE 0.6 mg/dL (0.6-1.0); GFR 109.1; POTASSIUM 3.6 mmol/L (3.5-5.1); TOTAL BILIRUBIN 0.3 mg/dL (0.2-1.0); TOTAL PROTEIN 6.9 g/dL (6.4-8.2)
[2020-10-20 15:13] LABS: CREAT RD UR 22.3 mg/dL (Not Estab.); MICRO CREAT RATIO <13 mg/g creat (0-29); MICROALB RD UR <3.0 ug/mL (Not Estab.)
[2020-10-21 00:10] LABS: HEMOGLOBIN A1C 7.5 % (4.8-5.6)
== END ==
LOC: LAB 07:14
PROVIDERS: ATTEND Family Medicine
DX: Z13.220 Encounter for screening for lipoid disorders (principal); E11.9 Type 2 diabetes mellitus without complications
CPT/HCPCS: 80053; 80061; 82043; 82570; 83036; 85025

== ENCOUNTER → 2020-10-24 | Outpatient (CLI) | payer OTHER ==
--- NOTE | 2020-10-24 09:40 | KCIC ---
Indication: Osteopenia. Follow-up study. M 85.80. History of diabetes. History of chemotherapy. Past history of steroid use. Taking calcium supplements. Ovaries and uterus have been removed. Postsurgica l menopausal osteoporosis screening. Bone Density: -BMD: (g/cm2) - AP Spine Total (L1-L4)..........0.931. - Total left Hip.................0.866. T-Score: - AP Spine Total (L1-L4).......... -1.1 - Total left Hip.................-0.6. Z-Score: - AP Spine Total (L1-L4)..........-0.7. - Total left Hip.................-0.4. World Health Organization criteria for BMD interpretation classify patients as Normal (T-score at or above -1.0), Osteopenic (T-score between -1.0 and -2.5), or Osteoporotic (T-score at or below -2.5). Impression: 1. AP Spine Total L1-L4---osteopenia. Since the prior study, there has been a decrease in the BMD of 6 percent. 2. Total left Hip---normal. Since the prior study, there has been a decrease in the BMD of approximat jean 2 percent. Electronically signed by: Yoel Morales MD (10/24/2020 9:38 AM) [id number]
== END ==
LOC: KCIC DEXA 08:35
PROVIDERS: ATTEND Family Medicine
DX: M85.88 Other specified disorders of bone density and structure, other site (principal)
CPT/HCPCS: 77080

== ENCOUNTER 2021-06-18 04:50 | Emergency (ER) | payer OTHER ==
[~2021-06-18] VITALS: Ht 167.6 cm; Wt 73.2 kg
[~2021-06-18 04:50] MED LIST changes: -PHEN15CA2 PO; +PHEN15CA6 PO
--- NOTE | 2021-06-18 05:08 | PHYS DOC ---
Past Medical History Past Medical History: Cancer, Diabetes-Type II, Hypertension Additional Past Medical Histor: EPIPLOIC APPENDAGITIS, BREAST CANCER W CHEMO 05/2015 Past Surgical History: Appendectomy Additional Past Surgical Histo: RIGHT KNEE SX, SINUS SX, bilat mastectomy, ADELINA, Cholecystectomy Smoking Status: Never Smoker Alcohol Use: None Drug Use: None General Adult EDM: Chief Complaint: ANKLE PROBLEM HPI: HPI: 45-year-old female presents with a chief complaint of right ankle pain. Prior to arrival patient fell twisted her right ankle in a brace to her left knee. On exam patient has swelling along the right lateral malleolus which is also tender to palpation. Review of Systems: Review of Systems: Constitutional: Denies fever or chills. [] Eyes: Denies change in visual acuity. [] HENT: Denies nasal congestion or sore throat. [] Respiratory: Denies cough or shortness of breath. [] Cardiovascular: Denies chest pain or edema. [] GI: Denies abdominal pain, nausea, vomiting, bloody stools or diarrhea. [] : Denies dysuria. [] Musculoskeletal: Denies back pain Positive joint pain. [] Integument: Denies rash. [] Neurologic: Denies headache, focal weakness or sensory changes. [] Endocrine: Denies polyuria or polydipsia. [] Lymphatic: Denies swollen glands. [] Psychiatric: Denies depression or anxiety. [] Heart Score: C/O Chest Pain: N/A Risk Factors: Risk Factors: DM, Current or recent (<one month) smoker, HTN, HLP, family history of CAD, obesity. Risk Scores: Score 0 - 3: 2.5% MACE over next 6 weeks - Discharge Home Score 4 - 6: 20.3% MACE over next 6 weeks - Admit for Clinical Observation Score 7 - 10: 72.7% MACE over next 6 weeks - Early Invasive Strategies Allergies: Allergies: Allergies Coded Allergies Type Severity Reaction Last Updated Verified Cephalosporins Allergy Severe Anaphylaxis 04/19/18 Yes Sulfa (Sulfonamide Antibiotics) Allergy Severe Anaphylaxis 04/19/18 Yes Penicillins Allergy Intermediate PSYCHOTIC EPISODE 04/19/18 Yes amoxicillin Allergy Intermediate Rash 04/19/18 Yes sumatriptan Adverse Reaction Severe CHEST PAIN 04/19/18 Yes bupropion Adverse Reaction Intermediate Anxiety 04/19/18 Yes Physical Exam: PE: Constitutional: Well developed, well nourished, no acute distress, non-toxic appearance. [] HENT: Normocephalic, atraumatic, bilateral external ears normal, oropharynx moist, no oral exudates, nose normal. [] Eyes: PERRLA, EOMI, conjunctiva normal, no discharge. [] Neck: Normal range of motion, no tenderness, supple, no stridor. [] Cardiovascular:Heart rate regular rhythm, no murmur [] Lungs & Thorax: Bilateral breath sounds clear to auscultation [] Abdomen: Bowel sounds normal, soft, no tenderness, no masses, no pulsatile masses. [] Skin: Warm, dry, no erythema, no rash. [] Back: No tenderness, no CVA tenderness. [] Extremities: No tenderness, no cyanosis, no clubbing, ROM intact, no edema. [Tenderness to palpation right ankle lateral malleolus, pain with range of motion] Neurologic: Alert and oriented X 3, normal motor function, normal sensory function, no focal deficits noted. [] Psychologic: Affect normal, judgement normal, mood normal. [] EKG: EKG: [] Radiology/Procedures: Radiology/Procedures: [] Impression: xray wet read no acute fracture Yony wrap. Rest Ice Compression Elevate OTC tyelnol and motrin. Course & Med Decision Making: Course & Med Decision Making Pertinent Labs and Imaging studies reviewed. (See chart for details) [] Dragon Disclaimer: Dragon Disclaimer: This electronic medical record was generated, in whole or in part, using a voice recognition dictation system. Departure Departure Impression: Primary Impression: Ankle sprain Disposition: HOME / SELF CARE / HOMELESS Referrals: YEISON CULP MD (PCP) Patient Instructions: Ankle Sprain PRITI DAVIS I DO Jun 18, 2021 05:08
--- NOTE | 2021-06-18 05:27 | RAD ---
XR EXAM OF ANKLE_RIGHT 3VIEWS History: Ankle pain after injury. Comparison: None. Findings: Osseous mineralization is normal. No acute fracture or dislocaton. The ankle mortise and talar dome a re intact. There are Achilles insertion and plantar calcaneal enthesophytes. Prominent anterior and l ateral ankle swelling. Impression: 1. Ankle swelling without acute osseous abnormality. Electronically signed by: Pete Andrew MD (06/18/2021 5:25 AM) [facility]
[2021-06-18 05:33] VITALS: BP 100/53
== END 2021-06-18 05:40 | disposition home or self-care (01) ==
LOC: ER 04:50
DX: S93.401A Sprain of unspecified ligament of right ankle, initial encounter (principal); E11.9 Type 2 diabetes mellitus without complications; I10 Essential (primary) hypertension; Z88.2 Allergy status to sulfonamides; Z88.0 Allergy status to penicillin; Z88.1 Allergy status to other antibiotic agents; Z88.8 Allergy status to other drugs, medicaments and biological substances; X50.9XXA Other and unspecified overexertion or strenuous movements or postures, initial encounter; Y93.89 Activity, other specified; Y92.89 Other specified places as the place of occurrence of the external cause; Y99.8 Other external cause status
CPT/HCPCS: 73610; 99283; 99284; A6450